=== PATIENT | male | born 1990 | race African-American/Black ===

== ENCOUNTER 2016-07-12 21:17 | Emergency (ER) | payer SELFPAY ==
[~2016-07-12] VITALS: Ht 180.3 cm; Wt 131.5 kg
[2016-07-12] MEDS ORDERED: TETRACAINE 0.5% OPHTH SOLUTION 4ML BOTTLE. OD ONE (22:00)
[2016-07-12] MEDS ORDERED: FLUORESCEIN 1MG EYE STRIP. OD ONE (22:00)
[2016-07-12] MEDS ORDERED: FLUORESCEIN 1MG EYE STRIP. ONE (22:23)
[2016-07-12] MEDS ORDERED: TETRACAINE 0.5% OPHTH SOLUTION 4ML BOTTLE. ONE (22:23)
[2016-07-12 22:41] VITALS: BP 153/100
[2016-07-12] MEDS ORDERED: IBUP800T PO (22:45)
[2016-07-12] MEDS ORDERED: ERYT1OIN6 LEFTEYE (22:45)
[2016-07-12] MEDS ORDERED: CYCL2DRO3 OP (22:45)
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
== END 2016-07-12 23:15 | disposition home or self-care (01) ==
LOC: ER 21:17
DX: S60.222A Contusion of left hand, initial encounter (principal); S60.221A Contusion of right hand, initial encounter; S05.02XA Injury of conjunctiva and corneal abrasion without foreign body, left eye, initial encounter; E11.9 Type 2 diabetes mellitus without complications; E78.00 Pure hypercholesterolemia, unspecified; I10 Essential (primary) hypertension; Y08.89XA Assault by other specified means, initial encounter; Y93.89 Activity, other specified; Y99.8 Other external cause status; Y92.89 Other specified places as the place of occurrence of the external cause
CPT/HCPCS: 73130; 99284

== ENCOUNTER 2016-09-22 18:36 | Emergency (ER) | payer BC, OTHER ==
[~2016-09-22] VITALS: Ht 180.3 cm; Wt 131.5 kg
[~2016-09-22 18:36] MED LIST: CYCL2DRO3 OP; ERYT1OIN6 LEFTEYE; IBUP800T19 PO
[2016-09-22] MEDS ORDERED: IV NORMAL SALINE 1,000ML 1,000 ML IV SCH (19:00)
[2016-09-22] MEDS ORDERED: 0.9 % SODIUM CHLORIDE 10 ML DISP.SYRIN. IV PRN (19:00)
--- NOTE | 2016-09-22 19:08 | PHYS DOC ---
Past History Past Medical History: Diabetes, High Cholesterol, Hypertension Past Surgical History: No Surgical History Alcohol Use: Occasionally Drug Use: None Adult General Chief Complaint Chief Complaint: [facility] HPI Patient is a 26-year-old male with a history of hypertension, diabetes, hyperlipidemia and question with history of sleep apnea who presents with increased urinary output dry mouth with a perception of a swollen tongue and increased sleepiness. Patient is sent to assess several weeks he's had increased thirst with increased urinary output of clear urine without abdominal pain, nausea, vomiting, diarrhea or other symptoms. He was in metformin at one point in time but because of his poor renal function that placement and Lantus. He takes 20 units of Lantus twice daily although he says he's been eating regularly he has not changed his diet he has been eating candy to help with his apnea and sleepiness in the car. He says that even at rest sometimes he gets so sleepy that he been on was passes out. Although this was specific neurologic deficit of numbness or tingling or change in vision or change in speech patterns patient sees that his sleepiness is actually increased in frequency. Patient did mention that possibly he has sleep apnea undiagnosed as his mother says he snores loudly and actually wakes himself up frequently in the course of the evening. Patient denies any fever, chills, headache or other trauma. His sugar today has been greater than 400. Review of Systems Review of Systems Constitutional: Denies fever or chills [] Eyes: Denies change in visual acuity, redness, or eye pain [] HENT: Denies nasal congestion or sore throat [] Respiratory: Denies cough or shortness of breath [] Cardiovascular: No additional information not addressed in HPI [] GI: Denies abdominal pain, nausea, vomiting, bloody stools or diarrhea [] : Denies dysuria or hematuria [] Musculoskeletal: Denies back pain or joint pain [] Integument: Denies rash or skin lesions [] Neurologic: Denies headache, patient describes generalized weakness and a pattern of almost narcoleptic-like behavior. Endocrine: Does describe a pattern of polyuria polydipsia Current Medications Current Medications Current Medications Medications (Trade) Dose Ordered Sig/Boy Start Time Stop Time Status Last Admin Dose Admin Sodium Chloride (Normal Saline Flush) 10 ml QSHIFT PRN 09/22/16 19:00 UNV Allergies Allergies Allergies Coded Allergies Type Severity Reaction Last Updated Verified No Known Drug Allergies 09/22/16 No Physical Exam Physical Exam Is noted to be hypertensive with a heart rate of 97 blood pressure 168/88 pulse ox of 97% on room air. Constitutional: Well developed, well nourished, no acute distress, non-toxic appearance. [] HENT: Normocephalic, atraumatic, bilateral external ears normal, dry mucous membranes, no oral exudates, nose normal. [] Eyes: PERRLA, EOMI, conjunctiva normal, no discharge. [] Neck: Normal range of motion, no tenderness, supple, no stridor. [] Cardiovascular:Heart rate regular rhythm, no murmur [] Lungs & Thorax: Bilateral breath sounds clear to auscultation [] Abdomen: Bowel sounds normal, soft, no tenderness, no masses, no pulsatile masses. [] Skin: Warm, dry, no erythema, no rash. [] Back: No tenderness, no CVA tenderness. [] Extremities: No tenderness, no cyanosis, no clubbing, ROM intact, no edema. [] Neurologic: Alert and oriented X 3, normal motor function, normal sensory function, no focal deficits noted. [] Psychologic: Affect normal, judgement normal, mood normal. [] Current Patient Data Vital Signs Vital Signs Date Time Temp Pulse Resp B/P (MAP) Pulse Ox O2 Delivery O2 Flow Rate FiO2 09/22/16 18:46 98.0 106 20 98 Room Air Lab Results Laboratory Tests Test 09/22/16 18:43 Glucose (Fingerstick) 441 mg/dL (70-99) H EKG EKG [] KG time 7:09 PM 09/22/2016 demonstrates normal sinus rhythm with a heart rate of 99 UT interval 128 QRS of 86 QTC of 400 patient has nonspecific T-wave inversion in the inferior leads and some nonspecific ST 7 changes in the anterior leads no clear STEMI. Radiology/Procedures Radiology/Procedures [] Patient is a PA lateral chest x-ray completed at 7:12 PM 09/22/2016 demonstrates no cardiomegaly lower lung volumes without hyperinflation or blunting of the costophrenic angles. Patient is no pleural effusion infiltrate no pneumothorax. Chest x-ray read by Dr. Fuller Course & Med Decision Making Course & Med Decision Making Pertinent Labs and Imaging studies reviewed. (See chart for details) is his presentation is concerning for possible competitions of diabetic ketoacidosis or hyperglycemia. The apnea and sleepiness described by the patient during the daylight hours may be associated with underlying no sleep-wake problems which may contribute to his attention issues, his hypertension and his sleepiness. This point I will get an acetone level, urinalysis, EKG, troponin, CMP CBC and an appropriate measure pH by ABG. We initially given some fluids see that his sugars improved. We'll ensure that he is not in DKA today. Patient tells me that their symptoms given during CC are improved. We reviewed labs and radiology reports with patient . He is ABG demonstrates a pH of 7.38 PCO2 42 PaO2 of 71 base excess of 0 bicarbonate 25. This ABG does not do note acidosis. Patient's blood glucose is 417. Patient's neck negative acetone, negative urinalysis for ketones, no anion gap at this time. Patient clearly is not in DKA. He is hyperglycemic but he has normal kidney function normal BUN/ creatinine is not dehydrated with normal electrolytes. Patient will be given fluids here dose insulin to drop his glucose tomorrow appropriate level. At this time I would advise that he follows up with his primary care doctor for better monitoring and management of his diabetes as well as referral to a neurologist for sleep study to rule out sleep apnea. Impression: Hyperglycemia. Fatigue secondary to possible sleep apnea by history and hypertension.] Disposition: PCP follow-up in 48 hours Dragon Disclaimer Dragon Disclaimer This chart was dictated in whole or in part using Voice Recognition software in a busy, high-work load, and often noisy Emergency Department environment. It may contain unintended and wholly unrecognized errors or omissions. Departure Departure: Impression: Primary Impression: Hyperglycemia Additional Impressions: Sleep apnea Hypertension Disposition: HOME, SELF-CARE Condition: IMPROVED Referrals: VIN CANTRELL MD (PCP) Patient Instructions: 2400 Calorie Diet for Diabetes Meal Planning, Hyperglycemia, Hypertension, Sleep Apnea Additional Instructions: Please return for any new or increasing symptoms. I would suggest that you follow-up with your primary care doctor for a referral for neurologist office so they can test to and get a sleep study organized. That may contribute to your fatigue your sleepiness and your hypertension. I would also advise he follow up with her primary care doctor in the next 48 hours to talk about your insulin dosing and your regimen. He may ask to benefit from a longer acting insulin like Levemir and a short acting insulin in addition to that to help control her sugars. These return for any question or concern she might have. Problem Qualifiers GISSEL FULLER MD Sep 22, 2016 19:08
[2016-09-22 19:18] LABS: BASO % 1 % (0-3); EOS # 0.1 x10^3/uL (0.0-0.7); EOS % 1 % (0-3); HEMATOCRIT 41.8 % (39.0-53.0); HEMOGLOBIN 13.8 g/dL (13.0-17.5); LYMPH # 2.4 x10^3/uL (1.0-4.8); LYMPH % 39 % (24-48); MEAN CORPUSCULAR HEMOGLOBIN 28 pg (25-35); MEAN CORPUSCULAR HGB CONC 33 g/dL (31-37); MEAN CORPUSCULAR VOLUME 83 fL (79-100); MONO # 0.6 x10^3/uL (0.0-1.1); MONO % 9 % (0-9); NEUT # 3.1 x10^3uL (1.8-7.7); NEUT % 50 % (31-73); PLATELET COUNT 192 x10^3/uL (140-400); RED BLOOD COUNT 5.03 x10^6/uL (4.30-5.70); RED CELL DISTRIBUTION WIDTH 12.6 % (11.5-14.5); WHITE BLOOD COUNT 6.2 x10^3/uL (4.0-11.0)
[2016-09-22 19:39] LABS: BGAS PH 7.39 (7.35-7.46)
[2016-09-22 19:41] LABS: ALBUMIN 3.7 g/dL (3.4-5.0); ALBUMIN/GLOBULIN RATIO 0.9 (1.0-1.7); CALCIUM 8.9 mg/dL (8.5-10.1); CREATININE 1.2 mg/dL (0.7-1.3); MAGNESIUM 1.8 mg/dL (1.8-2.4); POTASSIUM 4.2 mmol/L (3.5-5.1); TOTAL BILIRUBIN 0.5 mg/dL (0.2-1.0)
[2016-09-22 19:48] LABS: BACTERIA,URINE 0 /HPF (0-FEW); BILIRUBIN,URINE NEG (NEG); CLARITY,URINE CLEAR; COLOR,URINE STRAW; GLUCOSE,URINE 500 mg/dL (NEG); NITRITE,URINE NEG (NEG); RBC,URINE 0 /HPF (0-2); SQUAMOUS EPITHELIAL CELL,UR OCC /LPF; UROBILINOGEN,URINE 0.2 mg/dL (0.2 mg/dL); WBC,URINE OCC /HPF (0-4)
[2016-09-22] MEDS ORDERED: INSULIN REGULAR 100 UNIT/ML 10ML VIAL. IV ONE (20:15)
[2016-09-22 20:43] VITALS: BP 150/82
--- NOTE | 2016-09-23 00:35 | EKG ---
[address] [address] Test Date: 2016-09-22 Test Time: 19:09:20 Pat Name: SHELLEY CHAVARRIA Department: Room: Gender: M Communications Programmer: : [id number] Requested By: GISSEL MORALES Order Number: [id number] Reading MD: Measurements Intervals [place] Rate: 99 P: 54 AK: 128 QRS: -13 QRSD: 86 T: -28 QT: 308 QTc: 400 Interpretive Statements SINUS RHYTHM LEFTWARD AXIS QRS(T) CONTOUR ABNORMALITY CONSIDER ANTEROSEPTAL MYOCARDIAL DAMAGE T ABNORMALITY IN ANTEROLATERAL LEADS INFEROLATERAL LEADS RI6.01 Unconfirmed report No previous ECG available for comparison
--- NOTE | 2016-09-23 09:02 | RAD ---
EXAM: CHEST 2 VIEWS History: Generalized weakness, shortness of breath, syncope COMPARISON: None available. TECHNIQUE: PA and lateral chest radiographs FINDINGS: The cardiomediastinal silhouette is within normal limits. The lungs are clear bilaterally. The costophrenic sulci are clear and well demarcated bilaterally. IMPRESSION: No radiographic evidence of an acute cardiopulmonary abnormality.
== END 2016-09-22 20:47 | disposition home or self-care (01) ==
LOC: ER 18:36
DX: E11.65 Type 2 diabetes mellitus with hyperglycemia (principal); I10 Essential (primary) hypertension; G47.30 Sleep apnea, unspecified; E78.00 Pure hypercholesterolemia, unspecified
CPT/HCPCS: 36415; 36600; 71020; 80053; 81001; 82010; 82553; 82803; 82947; 83690; 83735; 83880; 84443; 84484; 85027; 93005; 96361; 96374; 99285; J1815; J7030

== ENCOUNTER 2017-04-05 01:19 | Emergency (ER) | payer BC ==
[~2017-04-05] VITALS: Ht 180.3 cm; Wt 125.2 kg
--- NOTE | 2017-04-05 01:37 | ED.ADGEN ---
Past History Past Medical History: Diabetes, High Cholesterol, Hypertension Past Surgical History: No Surgical History Alcohol Use: Occasionally Drug Use: None Adult General Chief Complaint Chief Complaint " I just got off work.... and felt a little dizzy.... I have not taken my diabetic or hypertension meds... " HPI HPI Patient is a 27 year old male who presents with above hx and complaints. Patient is on metformin for his diabetes, the patient does not remember his hypertensive meds. Patient does follow Dr. Pollock. A shunt is around sick patient' s where he works at [employer]. Patient did eat at [employer]. Patient denies any trauma. Patient denies any specific ill contacts. Patient denies any recent travel. Patient denies any illicit drug use. Patient has not taken a flu vaccination Review of Systems Review of Systems Constitutional: Denies fever or chills [] Eyes: Denies change in visual acuity, redness, or eye pain [] HENT: Denies nasal congestion or sore throat [] Respiratory: Denies cough or shortness of breath [] Cardiovascular: No additional information not addressed in HPI [] GI: Denies abdominal pain, nausea, vomiting, bloody stools or diarrhea [] : Denies dysuria or hematuria [] Musculoskeletal: Denies back pain or joint pain [] Integument: Denies rash or skin lesions [] Neurologic: Denies headache, focal weakness or sensory changes [patient] complains of mild dizziness Endocrine: Denies polyuria or polydipsia [] All other systems were reviewed and found to be within normal limits, except as documented in this note. Family History Family History Diabetes Current Medications Current Medications Current Medications Medications (Trade) Dose Ordered Sig/Boy Start Time Stop Time Status Last Admin Dose Admin Diphenhydramine HCl (Benadryl) 50 mg 1X ONCE 04/05/17 02:30 04/05/17 02:31 DC 04/05/17 02:25 50 MG Meclizine HCl (Antivert) 25 mg PRN Q6HRS PRN 04/05/17 02:15 04/05/17 02:32 DC 04/05/17 02:25 25 MG See nursing for home meds Allergies Allergies Allergies Coded Allergies Type Severity Reaction Last Updated Verified No Known Drug Allergies 09/22/16 No Physical Exam Physical Exam Constitutional: Well developed, well nourished, no acute distress, non-toxic appearance. [] HENT: Normocephalic, atraumatic, bilateral external ears normal, oropharynx moist, no oral exudates, nose mild turbinate injection and rhinorrhea Eyes: PERRLA, EOMI, conjunctiva normal, no discharge. [] Neck: Normal range of motion, no tenderness, supple, no stridor. [] Cardiovascular:Heart rate regular rhythm, no murmur [] Lungs & Thorax: Bilateral breath sounds clear to auscultation [] Abdomen: Bowel sounds normal, soft, no tenderness, no masses, no pulsatile masses. [] Obese Skin: Warm, dry, no erythema, no rash. [] Back: No tenderness, no CVA tenderness. [] Extremities: No tenderness, no cyanosis, no clubbing, ROM intact, no edema. [] Neurologic: Alert and oriented X 3, normal motor function, normal sensory function, no focal deficits noted. []DTRs +2 patella and brachial. Patient attempt without problems. Psychologic: Affect normal, judgement normal, mood normal. [] Current Patient Data Vital Signs Vital Signs Date Time Temp Pulse Resp B/P (MAP) Pulse Ox O2 Delivery O2 Flow Rate FiO2 04/05/17 02:30 85 16 139/76 (97) 96 Room Air Lab Results Laboratory Tests Test 04/05/17 01:44 04/05/17 01:49 Glucose (Fingerstick) 286 mg/dL (70-99) H Urine Collection Type Unknown Urine Color Yellow Urine Clarity Clear Urine pH 6.0 Urine Specific [place] 1.015 Urine Protein 100 mg/dl (NEG-TRACE) Urine Glucose (UA) 500 mg/dL (NEG) Urine Ketones (Stick) Neg mg/dL (NEG) Urine Blood Trace (NEG) Urine Nitrite Neg (NEG) Urine Bilirubin Neg (NEG) Urine Urobilinogen Dipstick 0.2 mg/dL (0.2 mg/dL) Urine Leukocyte Esterase Neg (NEG) Urine RBC 0 /HPF (0-2) Urine WBC Rare /HPF (0-4) Urine Squamous Epithelial Cells Occ /LPF Urine Bacteria 0 /HPF (0-FEW) Urine Opiates Screen Neg (NEG) Urine Methadone Screen Neg (NEG) Urine Barbiturates Neg (NEG) Urine Phencyclidine Screen Neg (NEG) Urine Amphetamine/Methamphetamine Neg (NEG) Urine Benzodiazepines Screen Neg (NEG) Urine Cocaine Screen Neg (NEG) Urine Cannabinoids Screen Neg (NEG) Urine Ethyl Alcohol Neg (NEG) EKG EKG [] Radiology/Procedures Radiology/Procedures [] Course & Med Decision Making Course & Med Decision Making Pertinent Labs and Imaging studies reviewed. (See chart for details). Push fluids. Push fruit juices. Follow-up primary care. Patient Continued meds and diabetic meds as directed. [] Final Impression Final Impression 1. Dizzy 2. DM 3. Hypertension[] Problems: Dragon Disclaimer Dragon Disclaimer This electronic medical record was generated, in whole or in part, using a voice recognition dictation system. GINA MUNGUIA MD Apr 05, 2017 01:37
[2017-04-05] MEDS ORDERED: MECLIZINE 12.5 MG TABLET. PO PRN (02:15)
[2017-04-05 02:17] LABS: BARBITURATES NEG (NEG); BENZODIAZEPINES NEG (NEG); CANNABINOIDS NEG (NEG); COCAINE NEG (NEG); METHADONE NEG (NEG); OPIATES NEG (NEG); PHENCYCLIDINE NEG (NEG)
[2017-04-05 02:20] LABS: AMPHETAMINE/METHAMPHETAMINE NEG (NEG)
[2017-04-05 02:22] LABS: BACTERIA,URINE 0 /HPF (0-FEW); BILIRUBIN,URINE NEG (NEG); CLARITY,URINE CLEAR; GLUCOSE,URINE 500 mg/dL (NEG); NITRITE,URINE NEG (NEG); RBC,URINE 0 /HPF (0-2); SQUAMOUS EPITHELIAL CELL,UR OCC /LPF; UROBILINOGEN,URINE 0.2 mg/dL (0.2 mg/dL); WBC,URINE RARE /HPF (0-4)
[2017-04-05 02:23] LABS: COLOR,URINE YELLOW
[2017-04-05 02:30] VITALS: BP 139/76
[2017-04-05] MEDS ORDERED: diphenhydrAMINE HCL 25 MG CAPSULE PO ONE (02:30)
== END 2017-04-05 02:30 | disposition home or self-care (01) ==
LOC: ER 01:19
DX: R42 Dizziness and giddiness (principal); E11.9 Type 2 diabetes mellitus without complications; E78.00 Pure hypercholesterolemia, unspecified; I10 Essential (primary) hypertension
CPT/HCPCS: 36415; 80307; 81001; 82947; 99284; J8597; Q0163; G0479

== ENCOUNTER 2017-10-19 09:38 | Emergency (ER) | payer BC ==
[~2017-10-19] VITALS: Ht 180.3 cm; Wt 131.0 kg
[2017-10-19 10:16] LABS: BILIRUBIN,URINE NEG (NEG); CLARITY,URINE CLEAR; COLOR,URINE YELLOW; GLUCOSE,URINE >=1000 mg/dL (NEG)
[2017-10-19 10:17] LABS: BACTERIA,URINE 0 /HPF (0-FEW); NITRITE,URINE NEG (NEG); RBC,URINE 0 /HPF (0-2); SQUAMOUS EPITHELIAL CELL,UR OCC /LPF; UROBILINOGEN,URINE 0.2 mg/dL (0.2 mg/dL); WBC,URINE 0 /HPF (0-4)
--- NOTE | 2017-10-19 10:17 | PHYS DOC ---
Past History Past Medical History: Diabetes, High Cholesterol, Hypertension Past Surgical History: No Surgical History Alcohol Use: Occasionally Drug Use: None Adult General Chief Complaint Chief Complaint: PAIN ON URINATION [facility] 27-year-old male patient with history of diabetes mellitus on insulin complaining of problem with his urination for almost 2 months. Patient states he had urinary frequency and dysuria and stress urine incontinence that gradually getting worse. Patient states he was seen by his primary care physician 50s after stopping his symptom and had negative STD evaluation. Patient complaining of subjective fever and morning nausea. Patient also complaining of several other chronic problem including episodes of apnea while sleeping that supported by his mother and a bump in his abdominal wall for several months and instructed to follow-up with his chronic problem with his primary care physician. Review of Systems Review of Systems Constitutional: Ports subjective fever and chills[] Eyes: Denies change in visual acuity, redness, or eye pain [] HENT: Denies nasal congestion or sore throat [] Respiratory: Denies cough or shortness of breath [] Cardiovascular: No additional information not addressed in HPI [] GI: Denies abdominal pain, nausea, vomiting, bloody stools or diarrhea [] : Reports dysuria and urinary frequency, denies hematuria Musculoskeletal: Denies back pain or joint pain [] Integument: Denies rash or skin lesions [] Neurologic: Denies headache, focal weakness or sensory changes [] Endocrine: Denies polyuria or polydipsia [] All other systems were reviewed and found to be within normal limits, except as documented in this note. Allergies Allergies Allergies Coded Allergies Type Severity Reaction Last Updated Verified No Known Drug Allergies 09/22/16 No Physical Exam Physical Exam Constitutional: Well developed, well nourished, no acute distress, non-toxic appearance, morbidly obese. [] HENT: Normocephalic, atraumatic, oropharynx moist, no oral exudates, nose normal. [] Eyes: PERRLA, EOMI, conjunctiva normal, no discharge. [] Neck: Normal range of motion, no tenderness, supple, no stridor. [] Cardiovascular:Heart rate regular rhythm, no murmur [] Lungs & Thorax: Bilateral breath sounds clear to auscultation [] Abdomen: Bowel sounds normal, soft, no tenderness, no masses, no pulsatile masses. [] Skin: Warm, dry, no erythema, no rash. [] Back: No tenderness, no CVA tenderness. [] Extremities: No tenderness, no cyanosis, no clubbing, ROM intact, no edema. [] Neurologic: Alert and oriented X 3, normal motor function, normal sensory function, no focal deficits noted. [] Psychologic: Affect normal, judgement normal, mood normal. [] Current Patient Data Vital Signs Vital Signs Date Time Temp Pulse Resp B/P (MAP) Pulse Ox O2 Delivery O2 Flow Rate FiO2 10/19/17 09:51 98.4 91 20 95 Room Air Lab Results Laboratory Tests Test 10/19/17 09:49 Glucose (Fingerstick) 310 mg/dL (70-99) H EKG EKG [] Radiology/Procedures Radiology/Procedures [] Course & Med Decision Making Course & Med Decision Making Pertinent Labs and Imaging studies reviewed. (See chart for details) Evaluation of patient in ER showed 27-year-old male patient with complaining of several chronic problems including urinary frequency and dysuria for the last 2 months. Patient had blood sugar of 310 with accu check and 288 with the lab. Patient had unremarkable physical exam except for morbid obesity. Patient instructed to follow with diabetic diet. Patient had blood pressure of 159/100 at arrival to ER and stated he had elevation of blood pressure previously but doesn't take any medication. Plan to give prescription for lisinopril. [] Dragon Disclaimer Dragon Disclaimer This electronic medical record was generated, in whole or in part, using a voice recognition dictation system. Departure Departure: Impression: Primary Impression: Uncontrolled diabetes mellitus Additional Impressions: Hyperglycemia Urinary frequency Morbid obesity Uncontrolled hypertension Disposition: HOME, SELF-CARE (at 1207) Condition: STABLE Referrals: PCP,UNKNOWN (PCP) Patient Instructions: Diet - 2000 Calorie Diabetic, Dysuria, Hyperglycemia Additional Instructions: Drink plenty of liquids Follow-up with your primary care physician in 3-5 days Return to ER if not getting better Scripts Phenazopyridine Hcl (PYRIDIUM) 100 Mg Tablet 100 MG PO BID, #10 TAB Prov: JEREMIAS WISDOM MD 10/19/17 Lisinopril (LISINOPRIL) 10 Mg Tablet 10 MG PO DAILY for FOR HYPERTENSION, #30 TAB 0 Refills Prov: JEREMIAS WISDOM MD 10/19/17 Problem Qualifiers JEREMIAS WISDOM MD Oct 19, 2017 10:17
[2017-10-19] MEDS ORDERED: IV NORMAL SALINE 1,000ML 1,000 ML IV ONE (10:30)
[2017-10-19 10:49] LABS: BARBITURATES NEG (NEG); BENZODIAZEPINES NEG (NEG); CANNABINOIDS NEG (NEG); COCAINE NEG (NEG); METHADONE NEG (NEG); OPIATES NEG (NEG); PHENCYCLIDINE NEG (NEG)
[2017-10-19 10:50] LABS: AMPHETAMINE/METHAMPHETAMINE NEG (NEG)
[2017-10-19 11:34] LABS: BASO % 1 % (0-3); EOS # 0.1 x10^3/uL (0.0-0.7); EOS % 1 % (0-3); HEMATOCRIT 44.8 % (39.0-53.0); HEMOGLOBIN 15.2 g/dL (13.0-17.5); LYMPH # 2.7 x10^3/uL (1.0-4.8); LYMPH % 41 % (24-48); MEAN CORPUSCULAR HEMOGLOBIN 28 pg (25-35); MEAN CORPUSCULAR HGB CONC 34 g/dL (31-37); MEAN CORPUSCULAR VOLUME 81 fL (79-100); MONO # 0.6 x10^3/uL (0.0-1.1); MONO % 9 % (0-9); NEUT # 3.1 x10^3uL (1.8-7.7); NEUT % 48 % (31-73); PLATELET COUNT 258 x10^3/uL (140-400); RED BLOOD COUNT 5.53 x10^6/uL (4.30-5.70); RED CELL DISTRIBUTION WIDTH 13.1 % (11.5-14.5); WHITE BLOOD COUNT 6.5 x10^3/uL (4.0-11.0)
[2017-10-19 11:56] LABS: ALBUMIN 3.8 g/dL (3.4-5.0); ALBUMIN/GLOBULIN RATIO 0.8 (1.0-1.7); CREATININE 0.9 mg/dL (0.7-1.3); GFR 124.4; POTASSIUM 4.1 mmol/L (3.5-5.1); TOTAL BILIRUBIN 0.6 mg/dL (0.2-1.0); TOTAL PROTEIN 8.4 g/dL (6.4-8.2)
[2017-10-19] MEDS ORDERED: PHEN100T82 PO (12:14)
[2017-10-19] MEDS ORDERED: LISI10TA2 PO (12:14)
[2017-10-19 12:30] VITALS: BP 162/84
== END 2017-10-19 12:30 | disposition home or self-care (01) ==
LOC: ER 09:38
DX: E11.65 Type 2 diabetes mellitus with hyperglycemia (principal); R35.0 Frequency of micturition; I10 Essential (primary) hypertension; E78.00 Pure hypercholesterolemia, unspecified; E66.01 Morbid (severe) obesity due to excess calories; Z68.41 Body mass index [BMI] 40.0-44.9, adult
CPT/HCPCS: 36415; 80053; 80307; 81001; 82947; 83690; 85025; 96360; 99284-25; G0479; J7030

== ENCOUNTER 2017-10-30 18:01 | Emergency (ER) | payer BC ==
[~2017-10-30] VITALS: Ht 180.3 cm; Wt 127.0 kg
[~2017-10-30 18:01] MED LIST changes: +LISI10TA2 PO; +PHEN100T82 PO
--- NOTE | 2017-10-30 18:09 | ED.ADGEN ---
Past History Past Medical History: Diabetes, High Cholesterol, Hypertension Past Surgical History: No Surgical History Alcohol Use: Occasionally Drug Use: None Adult General Chief Complaint Chief Complaint " .. Yesterday.. at work about 5.. (1700).. I twisted my foot and ankle.. it still sore and swollen.. " HPI HPI Patient is a 27 year old male who presents with above hx and complaints of twisting and inversion injury to Rt. foot and ankle. No upper leg tenderness. Distal neurovascular intact or equal to Lt. ankle and foot. Pt. does have hx of DM. Pt. does have some edema to Rt. foot and ankle. Review of Systems Review of Systems Constitutional: Denies fever or chills [] Eyes: Denies change in visual acuity, redness, or eye pain [] HENT: Denies nasal congestion or sore throat [] Respiratory: Denies cough or shortness of breath [] Cardiovascular: No additional information not addressed in HPI [] GI: Denies abdominal pain, nausea, vomiting, bloody stools or diarrhea [] : Denies dysuria or hematuria [] Musculoskeletal: Rt. ankle and foot edema and pain Integument: Denies rash or skin lesions [] Neurologic: Denies headache, focal weakness or sensory changes [] Endocrine: Denies polyuria or polydipsia [] All other systems were reviewed and found to be within normal limits, except as documented in this note. Family History Family History DM Current Medications Current Medications Current Medications Medications (Trade) Dose Ordered Sig/Boy Start Time Stop Time Status Last Admin Dose Admin Hydrocodone Bitartrate/ Ibuprofen (Vicoprofen 7.5-200) 2 tab 1X ONCE 10/30/17 18:30 10/30/17 18:31 DC 10/30/17 18:33 2 TAB See Nursing for home meds. Allergies Allergies Allergies Coded Allergies Type Severity Reaction Last Updated Verified No Known Drug Allergies 10/30/17 No Physical Exam Physical Exam Constitutional: Well developed, well nourished, no acute distress, non-toxic appearance. [] HENT: Normocephalic, atraumatic, bilateral external ears normal, oropharynx moist, no oral exudates, nose normal. [] Eyes: PERRLA, EOMI, conjunctiva normal, no discharge. [] Neck: Normal range of motion, no tenderness, supple, no stridor. [] Cardiovascular:Heart rate regular rhythm, no murmur [] Lungs & Thorax: Bilateral breath sounds clear to auscultation [] Abdomen: Bowel sounds normal, soft, no tenderness, no masses, no pulsatile masses. [] Obese. Skin: Warm, dry, no erythema, no rash. [] Back: No tenderness, no CVA tenderness. [] Extremities: No tenderness, no cyanosis, no clubbing, ROM intact, no edema. [] Except findings in Rt. foot and ankle. Neurologic: Alert and oriented X 3, normal motor function, normal sensory function, no focal deficits noted. [] Psychologic: Affect anxious, judgement normal, mood normal. [] Current Patient Data Vital Signs Vital Signs Date Time Temp Pulse Resp B/P (MAP) Pulse Ox O2 Delivery O2 Flow Rate FiO2 10/30/17 18:55 79 18 169/107 (127) 96 Room Air 10/30/17 18:01 98.2 EKG EKG [] Radiology/Procedures Radiology/Procedures My interpretation of Rt. foot and ankle shows edema. Some DJD. No displaced fx . [] Course & Med Decision Making Course & Med Decision Making Pertinent Labs and Imaging studies reviewed. (See chart for details). Follow up work comp. Ice, elevation, rest and take Ibuprofen for pain. Zackery wrap. Must follow up. Marked pain take vicoprofen. [] Final Impression Final Impression 1. Rt. ankle and foot- sprain / strain[] Dragon Disclaimer Dragon Disclaimer This electronic medical record was generated, in whole or in part, using a voice recognition dictation system. GINA MUNGUIA MD Oct 30, 2017 18:09
[2017-10-30] MEDS ORDERED: HYDROcodon/IBUPROFEN 7.5/200MG 1 TAB TABLET PO ONE (18:30)
[2017-10-30] MEDS ORDERED: HYDR-79 PO (18:32)
[2017-10-30 18:55] VITALS: BP 169/107
--- NOTE | 2017-10-31 07:59 | RAD ---
EXAM: 1. 3 views right ankle 2. 3 views right foot DATE: 10/30/2017 6:02 PM INDICATION: TWISTED RIGHT ANKLE/FOOT YESTERDAY, PAIN ALL OVER COMPARISON: No Prior FINDINGS: No evidence of acute fracture or dislocation. Soft tissue swelling is seen overlying the medial aspect of the midfoot. Ankle mortise is congruent. Talar dome is intact. There is no offset at the tarsometatarsal joint on these nonweightbearing views. Joint spaces are preserved without significant degenerative/proliferative change. Type II navicular incidentally seen. IMPRESSION: 1. No evidence of acute fracture or dislocation. 2. Soft tissue swelling overlying the medial midfoot. Electronically signed by: Nacho Murray MD (10/31/2017 7:55 AM) [facility]
== END 2017-10-30 18:55 | disposition home or self-care (01) ==
LOC: ER 18:01
DX: S93.401A Sprain of unspecified ligament of right ankle, initial encounter (principal); S93.601A Unspecified sprain of right foot, initial encounter; E11.9 Type 2 diabetes mellitus without complications; I10 Essential (primary) hypertension; E78.00 Pure hypercholesterolemia, unspecified; X50.1XXA Overexertion from prolonged static or awkward postures, initial encounter; Y93.89 Activity, other specified; Y92.89 Other specified places as the place of occurrence of the external cause; Y99.8 Other external cause status
CPT/HCPCS: 73610; 73630; 99284

== ENCOUNTER 2017-12-31 16:29 | Emergency (ER) | payer BC ==
[~2017-12-31] VITALS: Ht 180.3 cm; Wt 127.0 kg
[~2017-12-31 16:29] MED LIST changes: +HYDR-79 PO
[2017-12-31] MEDS ORDERED: IV NORMAL SALINE 1,000ML 1,000 ML IV ONE (17:00)
--- NOTE | 2017-12-31 17:08 | PHYS DOC ---
Past History Past Medical History: Diabetes, Pneumonia Past Surgical History: No Surgical History Smoking: Non-smoker Alcohol Use: None Drug Use: None Adult General Chief Complaint Chief Complaint: DIZZY/LIGHT HEADED HPI HPI Patient is a 27 year old male who presents with complaining of dizziness for the last 3 days as a constant problem that getting worse with standing up and movement of his head. 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 Patient complaining of chronic headache for several months. No change. Patient complaining of intermittent episodes of plugging ears for the last 3 days without tinnitus. Patient denies nausea, vomiting, fever and chills, diarrhea and constipation, focal neuro deficit, chest pain, shortness of breath. Patient complaining of nasal congestion and states he was treated with Zithromax for sinus infection without improvement of his dizziness. Patient states his blood sugar usually runs about 80s but yesterday was more than 200. Review of Systems Review of Systems Constitutional: Denies fever or chills [] Eyes: Denies change in visual acuity, redness, or eye pain [] HENT: Denies nasal congestion or sore throat [] Respiratory: Denies cough or shortness of breath [] Cardiovascular: No additional information not addressed in HPI [] GI: Denies abdominal pain, nausea, vomiting, bloody stools or diarrhea [] : Denies dysuria or hematuria [] Musculoskeletal: Denies back pain or joint pain [] Integument: Denies rash or skin lesions [] Neurologic: Reports dizziness and headache, denies focal weakness or sensory changes [] Endocrine: Denies polyuria or polydipsia [] All other systems were reviewed and found to be within normal limits, except as documented in this note. Current Medications Current Medications Current Medications Medications (Trade) Dose Ordered Sig/Boy Start Time Stop Time Status Last Admin Dose Admin Sodium Chloride 1,000 ml @ 1,000 mls/hr 1X ONCE 12/31/17 17:00 12/31/17 17:59 Allergies Allergies Allergies Coded Allergies Type Severity Reaction Last Updated Verified No Known Drug Allergies 10/30/17 No Physical Exam Physical Exam Constitutional: Well developed, well nourished, no acute distress, non-toxic appearance, obese. [] HENT: Normocephalic, atraumatic, bilateral external ears normal, oropharynx moist, no oral exudates, nose normal. [] Eyes: PERRLA, EOMI, conjunctiva normal, no discharge. [] Neck: Normal range of motion, no tenderness, supple, no stridor. [] Cardiovascular:Heart rate regular rhythm, no murmur [] Lungs & Thorax: Bilateral breath sounds clear to auscultation [] Abdomen: Bowel sounds normal, soft, no tenderness, no masses, no pulsatile masses. [] Skin: Warm, dry, no erythema, no rash. [] Back: No tenderness, no CVA tenderness. [] Extremities: No tenderness, no cyanosis, no clubbing, ROM intact, no edema. [] Neurologic: Alert and oriented X 3, normal motor function, normal sensory function, no focal deficits noted. [] Psychologic: Affect normal, judgement normal, mood normal. [] Current Patient Data Vital Signs Vital Signs Date Time Temp Pulse Resp B/P (MAP) Pulse Ox O2 Delivery O2 Flow Rate FiO2 12/31/17 16:43 98.4 101 20 98 Lab Results Laboratory Tests Test 12/31/17 16:56 Glucose (Fingerstick) 331 mg/dL (70-99) H EKG EKG EKG interpreted by me. EKG at 1651 showed sinus rhythm at rate of 91, T abnormality in anteroseptal leads, no acute ST and T-wave abnormalities. Radiology/Procedures Radiology/Procedures [address] [address] IMAGING REPORT Signed PATIENT: SHELLEY CHAVARRIA ACCOUNT: [id number] : 1990 LOCATION: ER AGE: 27 SEX: M EXAM STATUS: REG ER ORD. PHYSICIAN: JEREMIAS WISDOM MD REASON: dizziness and headache PROCEDURE: CT HEAD WO CONTRAST CT head without intravenous contrast History: Headache and dizziness for 4 days. Comparison: None. Technique: Axial images are obtained of the head from the skull base through the vertex without IV contrast. Exposure: One or more of the following individualized dose reduction techniques were utilized for this examination: 1. Automated exposure control 2. Adjustment of the mA and/or kV according to patient size 3. Use of iterative reconstruction technique Findings: The ventricles are appropriate in size, shape, and location for the patient's age. No obvious intracranial mass, mass-effect, midline shift, hemorrhage or obvious acute infarction is identified. Basilar cisterns are patent. Bone windows demonstrate no acute calvarial abnormality. Mild mucosal thickening involves ethmoid air cells. Mild left maxillary sinus disease is incompletely visualized. Nonosseous fusion of the posterior arch of C1 is seen. Impression: 1. No acute intracranial process. Electronically signed by: Shadi Hutson MD (12/31/2017 5:55 PM) [facility] DICTATED AND SIGNED BY: SHADI HUTSON MD DATE: 12/31/17 7904 CC: TIM VORA MD; JEREMIAS WISDOM MD ~ Course & Med Decision Making Course & Med Decision Making Pertinent Labs and Imaging studies reviewed. (See chart for details) Evaluation of patient in ER showed 27-year-old male patient with complaining of dizziness. Patient had blood sugar of more than 300 and treated with IV fluid improvement of his dizziness and condition. Labs otherwise was unremarkable. Patient had negative orthostatic vital sign and CT of head. Patient instructed to follow with diabetic diet and continue home diabetic medication. Dragon Disclaimer Dragon Disclaimer This electronic medical record was generated, in whole or in part, using a voice recognition dictation system. Departure Departure: Impression: Primary Impression: Hyperglycemia Additional Impression: Dizziness Disposition: 01 HOME, SELF-CARE (at 1830) Condition: IMPROVED Referrals: TIM VORA MD (PCP) Patient Instructions: 1800 Calorie Diet for Diabetes Meal Planning, Dizziness, Hyperglycemia Additional Instructions: Drink plenty of liquids Follow-up with your primary care physician in 3-5 days Return to ER if not getting better Problem Qualifiers JEREMIAS WISDOM MD Dec 31, 2017 17:08
[2017-12-31 17:26] LABS: BASO % 0 % (0-3); EOS # 0.1 x10^3/uL (0.0-0.7); EOS % 2 % (0-3); HEMATOCRIT 41.8 % (39.0-53.0); LYMPH % 40 % (24-48); MEAN CORPUSCULAR HEMOGLOBIN 27 pg (25-35); MEAN CORPUSCULAR HGB CONC 34 g/dL (31-37); MEAN CORPUSCULAR VOLUME 81 fL (79-100); MONO # 0.6 x10^3/uL (0.0-1.1); MONO % 12 % (0-9); NEUT # 2.2 x10^3uL (1.8-7.7); NEUT % 46 % (31-73); PLATELET COUNT 254 x10^3/uL (140-400); RED BLOOD COUNT 5.15 x10^6/uL (4.30-5.70); RED CELL DISTRIBUTION WIDTH 13.1 % (11.5-14.5); WHITE BLOOD COUNT 4.9 x10^3/uL (4.0-11.0)
[2017-12-31 17:40] LABS: ALBUMIN 3.6 g/dL (3.4-5.0); GFR 110.2; MAGNESIUM 1.7 mg/dL (1.8-2.4); POTASSIUM 4.1 mmol/L (3.5-5.1); TOTAL BILIRUBIN 0.5 mg/dL (0.2-1.0); TOTAL PROTEIN 7.2 g/dL (6.4-8.2)
[2017-12-31 17:51] LABS: BARBITURATES NEG (NEG); BENZODIAZEPINES NEG (NEG); CANNABINOIDS NEG (NEG); COCAINE NEG (NEG); METHADONE NEG (NEG); OPIATES NEG (NEG); PHENCYCLIDINE NEG (NEG)
--- NOTE | 2017-12-31 17:58 | RAD ---
CT head without intravenous contrast History: Headache and dizziness for 4 days. Comparison: None. Technique: Axial images are obtained of the head from the skull base through the vertex without IV contrast. Exposure: One or more of the following individualized dose reduction techniques were utilized for this examination: 1. Automated exposure control 2. Adjustment of the mA and/or kV according to patient size 3. Use of iterative reconstruction technique Findings: The ventricles are appropriate in size, shape, and location for the patient's age. No obvious intracranial mass, mass-effect, midline shift, hemorrhage or obvious acute infarction is identified. Basilar cisterns are patent. Bone windows demonstrate no acute calvarial abnormality. Mild mucosal thickening involves ethmoid air cells. Mild left maxillary sinus disease is incompletely visualized. Nonosseous fusion of the posterior arch of C1 is seen. Impression: 1. No acute intracranial process. Electronically signed by: Shadi Gandhi MD (12/31/2017 5:55 PM) [facility]
[2017-12-31 17:59] LABS: AMPHETAMINE/METHAMPHETAMINE NEG (NEG)
[2017-12-31 18:30] VITALS: BP 174/62
[2017-12-31 18:31] LABS: BILIRUBIN,URINE NEG (NEG); CLARITY,URINE CLEAR; COLOR,URINE YELLOW; GLUCOSE,URINE >=1000 mg/dL (NEG)
[2017-12-31 18:32] LABS: BACTERIA,URINE FEW /HPF (0-FEW); NITRITE,URINE NEG (NEG); RBC,URINE OCC /HPF (0-2); UROBILINOGEN,URINE 0.2 mg/dL (0.2 mg/dL); WBC,URINE OCC /HPF (0-4)
--- NOTE | 2018-01-01 07:13 | EKG ---
[address] [address] Test Date: 2017-12-31 Test Time: 16:51:33 Pat Name: SHELLEY CHAVARRIA Department: Room: Gender: Blind Aide: : 1990 Requested By: JEREMIAS WISDOM Order Number: [id number] Reading MD: Scotty Parson MD Measurements Intervals [place] Rate: P: ID: QRS: QRSD: T: QT: QTc: Interpretive Statements SR NON-SPECIFIC ST/T CHANGES Electronically Signed On 01-02-2018 9:54:04 CDT by Scotty Parson MD
== END 2017-12-31 18:44 | disposition home or self-care (01) ==
LOC: ER 16:29
DX: E11.65 Type 2 diabetes mellitus with hyperglycemia (principal); R42 Dizziness and giddiness; R51 Headache
CPT/HCPCS: 36415; 70450; 80053; 80307; 81001; 82947; 83735; 84484; 85025; 93005; 96360; 99285-25; G0479; J7030

== ENCOUNTER 2018-03-29 23:57 | Inpatient (IN) | payer BC ==
[~2018-03-29] VITALS: Ht 180.3 cm; Wt 131.6 kg
[~2018-03-29 23:57] MED LIST changes: +HYDR-1179 PO; -HYDR-79 PO
--- NOTE | 2018-03-29 23:58 | ED.ADGEN ---
Past History Past Medical History: Diabetes, Pneumonia Past Surgical History: No Surgical History Smoking: Non-smoker Alcohol Use: None Drug Use: None Adult General Chief Complaint Chief Complaint ".. I ve been off my diabetic meds for about six weeks.. My new insurance will not cover them and they are too expensive.. " HPI HPI Patient is a 28 year old male who presents with above hx and complaints of hyperglycemia. Patient has had financial noncompliance because of the cost of diabetic meds. No recent travel. No specific ill contacts. No history immunosuppression. Patient normally follows Dr. Kaba's office Review of Systems Review of Systems Constitutional: Denies fever or chills [] Eyes: Denies change in visual acuity, redness, or eye pain [] HENT: Denies nasal congestion or sore throat [] Respiratory: Denies cough or shortness of breath [] Cardiovascular: No additional information not addressed in HPI [] GI: Denies abdominal pain, nausea, vomiting, bloody stools or diarrhea [] : Denies dysuria or hematuria [] Musculoskeletal: Denies back pain or joint pain [] Integument: Denies rash or skin lesions [] Neurologic: Denies headache, focal weakness or sensory changes [] Endocrine: Complaints of of polyuria or polydipsia [] All other systems were reviewed and found to be within normal limits, except as documented in this note. Family History Family History Noncontributory Current Medications Current Medications Current Medications Medications (Trade) Dose Ordered Sig/Boy Start Time Stop Time Status Last Admin Dose Admin Insulin Human Regular 150 unit/ Sodium Chloride 151.5 ml @ 0 mls/hr 1X ONCE 03/30/18 00:30 03/30/18 00:41 DC 03/30/18 00:59 7 MLS/HR Lactated Ringer's 1,000 ml @ 1,000 mls/hr 1X ONCE 03/30/18 01:15 03/30/18 02:14 DC Sodium Chloride 150 ml @ As Directed STK-MED ONCE 03/30/18 00:51 03/30/18 00:53 DC Allergies Allergies Allergies Coded Allergies Type Severity Reaction Last Updated Verified No Known Drug Allergies 10/30/17 No Physical Exam Physical Exam Constitutional: Well developed, well nourished, mild distress, non-toxic appearance. [] HENT: Normocephalic, atraumatic, bilateral external ears normal, oropharynx dry , no oral exudates, nose normal. [] Eyes: PERRLA, EOMI, conjunctiva normal, no discharge. [] Neck: Normal range of motion, no tenderness, supple, no stridor. [] Cardiovascular:Heart rate regular rhythm, no murmur [] Lungs & Thorax: Bilateral breath sounds clear to auscultation [] Abdomen: Bowel sounds normal, soft, no tenderness, no masses, no pulsatile masses. [] Skin: Warm, dry, no erythema, no rash. [] Back: No tenderness, no CVA tenderness. [] Extremities: No tenderness, no cyanosis, no clubbing, ROM intact, no edema. [] Neurologic: Alert and oriented X 3, normal motor function, normal sensory function, no focal deficits noted. [] Psychologic: Affect anxious, judgement normal, mood normal. [] Current Patient Data Vital Signs Vital Signs Date Time Temp Pulse Resp B/P (MAP) Pulse Ox O2 Delivery O2 Flow Rate FiO2 03/30/18 01:07 95 19 173/93 (119) 97 Room Air 03/30/18 00:26 97.8 Lab Results Laboratory Tests Test 03/30/18 00:10 03/30/18 00:15 03/30/18 00:20 Glucose (Fingerstick) 568 mg/dL (70-99) *H Urine Collection Type Unknown Urine Color Yellow Urine Clarity Clear Urine pH 6.0 Urine Specific [place] <=1.005 Urine Protein Neg (NEG-TRACE) Urine Glucose (UA) >=1000 mg/dL (NEG) Urine Ketones (Stick) Neg mg/dL (NEG) Urine Blood Neg (NEG) Urine Nitrite Neg (NEG) Urine Bilirubin Neg (NEG) Urine Urobilinogen Dipstick 0.2 mg/dL (0.2 mg/dL) Urine Leukocyte Esterase Neg (NEG) Urine RBC Rare /HPF (0-2) Urine WBC 0 /HPF (0-4) Urine Squamous Epithelial Cells Occ /LPF Urine Bacteria 0 /HPF (0-FEW) Urine Opiates Screen Neg (NEG) Urine Methadone Screen Neg (NEG) Urine Barbiturates Neg (NEG) Urine Phencyclidine Screen Neg (NEG) Urine Amphetamine/Methamphetamine Neg (NEG) Urine Benzodiazepines Screen Neg (NEG) Urine Cocaine Screen Neg (NEG) Urine Cannabinoids Screen Neg (NEG) Urine Ethyl Alcohol Neg (NEG) White Blood Count 6.1 x10^3/uL (4.0-11.0) Red Blood Count 5.34 x10^6/uL (4.30-5.70) Hemoglobin 14.2 g/dL (13.0-17.5) Hematocrit 43.8 % (39.0-53.0) Mean Corpuscular Volume 82 fL (79-100) Mean Corpuscular Hemoglobin 27 pg (25-35) Mean Corpuscular Hemoglobin Concent 33 g/dL (31-37) Red Cell Distribution Width 12.9 % (11.5-14.5) Platelet Count 247 x10^3/uL (140-400) Neutrophils (%) (Auto) 52 % (31-73) Lymphocytes (%) (Auto) 37 % (24-48) Monocytes (%) (Auto) 10 % (0-9) H Eosinophils (%) (Auto) 1 % (0-3) Basophils (%) (Auto) 1 % (0-3) Neutrophils # (Auto) 3.1 x10^3uL (1.8-7.7) Lymphocytes # (Auto) 2.3 x10^3/uL (1.0-4.8) Monocytes # (Auto) 0.6 x10^3/uL (0.0-1.1) Eosinophils # (Auto) 0.0 x10^3/uL (0.0-0.7) Basophils # (Auto) 0.0 x10^3/uL (0.0-0.2) Prothrombin Time 9.4 SEC (9.4-11.4) Prothrombin Time INR 0.9 (0.9-1.1) PTT 29 SEC (23-33) Sodium Level 134 mmol/L (136-145) L Potassium Level 4.1 mmol/L (3.5-5.1) Chloride Level 97 mmol/L (98-107) L Carbon Dioxide Level 27 mmol/L (21-32) Anion Gap 10 (6-14) Blood Urea Nitrogen 15 mg/dL (8-26) Creatinine 1.1 mg/dL (0.7-1.3) Estimated GFR (Cockcroft-Gault) 97.9 Glucose Level 532 mg/dL (70-99) *H Calcium Level 9.1 mg/dL (8.5-10.1) Magnesium Level 1.7 mg/dL (1.8-2.4) L Total Bilirubin 0.3 mg/dL (0.2-1.0) Direct Bilirubin 0.1 mg/dL (0.0-0.2) Aspartate Amino Transferase (AST) 12 U/L (15-37) L Alanine Aminotransferase (ALT) 31 U/L (16-63) Alkaline Phosphatase 83 U/L (46-116) Creatine Kinase 410 U/L (39-308) H Troponin I Quantitative < 0.017 ng/mL (0-0.055) Total Protein 8.1 g/dL (6.4-8.2) Albumin 3.8 g/dL (3.4-5.0) Amylase Level 137 U/L (25-115) H Lipase 258 U/L (73-393) EKG EKG [] Radiology/Procedures Radiology/Procedures [] Course & Med Decision Making Course & Med Decision Making Pertinent Labs and Imaging studies reviewed. (See chart for details). Plan admission to Dr. Kaba- for hydration and hyperglycemia control. [] Final Impression Final Impression 1. Diabetes- Hyperglycemia[] 532 2. Elevated Amylase 137 3. Dehydration Dragon Disclaimer Dragon Disclaimer This electronic medical record was generated, in whole or in part, using a voice recognition dictation system. Dragon Disclaimer This chart was dictated in whole or in part using Voice Recognition software in a busy, high-work load, and often noisy Emergency Department environment. It may contain unintended and wholly unrecognized errors or omissions. Discharge Summary Visit Information Final Diagnosis Problems Medical Problems: (1) Hyperglycemia Status: Acute Brief Hospital Course Allergies Allergies Coded Allergies Type Severity Reaction Last Updated Verified No Known Drug Allergies 10/30/17 No Vital Signs Vital Signs Date Time Temp Pulse Resp B/P (MAP) Pulse Ox O2 Delivery O2 Flow Rate FiO2 03/30/18 01:07 95 19 173/93 (119) 97 Room Air 03/30/18 00:26 97.8 Lab Results Laboratory Tests Test 03/30/18 00:10 03/30/18 00:15 03/30/18 00:20 Glucose (Fingerstick) 568 mg/dL (70-99) Urine Collection Type Unknown Urine Color Yellow Urine Clarity Clear Urine pH 6.0 Urine Specific [place] <=1.005 Urine Protein Neg (NEG-TRACE) Urine Glucose (UA) >=1000 mg/dL (NEG) Urine Ketones (Stick) Neg mg/dL (NEG) Urine Blood Neg (NEG) Urine Nitrite Neg (NEG) Urine Bilirubin Neg (NEG) Urine Urobilinogen Dipstick 0.2 mg/dL (0.2 mg/dL) Urine Leukocyte Esterase Neg (NEG) Urine RBC Rare /HPF (0-2) Urine WBC 0 /HPF (0-4) Urine Squamous Epithelial Cells Occ /LPF Urine Bacteria 0 /HPF (0-FEW) Urine Opiates Screen Neg (NEG) Urine Methadone Screen Neg (NEG) Urine Barbiturates Neg (NEG) Urine Phencyclidine Screen Neg (NEG) Urine Amphetamine/Methamphetamine Neg (NEG) Urine Benzodiazepines Screen Neg (NEG) Urine Cocaine Screen Neg (NEG) Urine Cannabinoids Screen Neg (NEG) Urine Ethyl Alcohol Neg (NEG) White Blood Count 6.1 x10^3/uL (4.0-11.0) Red Blood Count 5.34 x10^6/uL (4.30-5.70) Hemoglobin 14.2 g/dL (13.0-17.5) Hematocrit 43.8 % (39.0-53.0) Mean Corpuscular Volume 82 fL (79-100) Mean Corpuscular Hemoglobin 27 pg (25-35) Mean Corpuscular Hemoglobin Concent 33 g/dL (31-37) Red Cell Distribution Width 12.9 % (11.5-14.5) Platelet Count 247 x10^3/uL (140-400) Neutrophils (%) (Auto) 52 % (31-73) Lymphocytes (%) (Auto) 37 % (24-48) Monocytes (%) (Auto) 10 % (0-9) Eosinophils (%) (Auto) 1 % (0-3) Basophils (%) (Auto) 1 % (0-3) Neutrophils # (Auto) 3.1 x10^3uL (1.8-7.7) Lymphocytes # (Auto) 2.3 x10^3/uL (1.0-4.8) Monocytes # (Auto) 0.6 x10^3/uL (0.0-1.1) Eosinophils # (Auto) 0.0 x10^3/uL (0.0-0.7) Basophils # (Auto) 0.0 x10^3/uL (0.0-0.2) Prothrombin Time 9.4 SEC (9.4-11.4) Prothromb Time International Ratio 0.9 (0.9-1.1) Activated Partial Thromboplast Time 29 SEC (23-33) Sodium Level 134 mmol/L (136-145) Potassium Level 4.1 mmol/L (3.5-5.1) Chloride Level 97 mmol/L (98-107) Carbon Dioxide Level 27 mmol/L (21-32) Anion Gap 10 (6-14) Blood Urea Nitrogen 15 mg/dL (8-26) Creatinine 1.1 mg/dL (0.7-1.3) Estimated GFR (Cockcroft-Gault) 97.9 Glucose Level 532 mg/dL (70-99) Calcium Level 9.1 mg/dL (8.5-10.1) Magnesium Level 1.7 mg/dL (1.8-2.4) Total Bilirubin 0.3 mg/dL (0.2-1.0) Direct Bilirubin 0.1 mg/dL (0.0-0.2) Aspartate Amino Transf (AST/SGOT) 12 U/L (15-37) Alanine Aminotransferase (ALT/SGPT) 31 U/L (16-63) Alkaline Phosphatase 83 U/L (46-116) Creatine Kinase 410 U/L (39-308) Troponin I Quantitative < 0.017 ng/mL (0-0.055) Total Protein 8.1 g/dL (6.4-8.2) Albumin 3.8 g/dL (3.4-5.0) Amylase Level 137 U/L (25-115) Lipase 258 U/L (73-393) Brief Hospital Course Mr. Alanis is a 28 old male who presented with hyperglycemia. Admitted to Dr. Kaba- for hydration and glucose control. Discharge Information Condition at Discharge: Improved Dischare Medications Current Medications Sodium Chloride 1,000 ml @ 1,000 mls/hr Q1H IV Last administered on 03/30/18at 01:02; Admin Dose 1,000 MLS/HR; Start 03/30/18 at 00:15; Stop 03/30/18 at 01:14 ; Status DC Insulin Human Regular 150 unit/ Sodium Chloride 151.5 ml @ 0 mls/hr 1X ONCE IV Last administered on 03/30/18at 00:59; Admin Dose 7 MLS/HR; Start 03/30/18 at 00:30; Stop 03/30/18 at 00:41; Status DC Sodium Chloride 150 ml @ As Directed STK-MED ONCE .ROUTE ; Start 03/30/18 at 00 :51; Stop 03/30/18 at 00:53; Status DC Lactated Ringer's 1,000 ml @ 1,000 mls/hr 1X ONCE IV ; Start 03/30/18 at 01:15 ; Stop 03/30/18 at 02:14; Status DC Active Scripts Active Hydrocodone-Ibuprofen 7.5-200 (Hydrocodone/Ibuprofen) 1 Each Tablet 1 Tab PO PRN Q6HRS PRN Pyridium (Phenazopyridine Hcl) 100 Mg Tablet 100 Mg PO BID Lisinopril 10 Mg Tablet 10 Mg PO DAILY Cyclogyl (Cyclopentolate Hcl) 2 Ml Drops 2 Ml OP TID Erythromycin (Erythromycin Base) 3.5 Gm Oint...g. 1 Enrique LEFTEYE TID Ibuprofen 800 Mg Tablet 1 Tab PO TID GINA MUNGUIA MD Mar 29, 2018 23:58
[2018-03-30] MEDS: IV NORMAL SALINE 1,000ML 1,000 ML IV SCH ×5 (00:24→20:54)
[2018-03-30] MEDS ORDERED: INSULIN REGULAR VIAL 150 UNIT in 0.9 % SODIUM CHLORIDE 150ML 150 ML IV ONE ×4 (00:30→17:15)
[2018-03-30 00:43] LABS: BASO % 1 % (0-3); EOS % 1 % (0-3); HEMATOCRIT 43.8 % (39.0-53.0); HEMOGLOBIN 14.2 g/dL (13.0-17.5); LYMPH # 2.3 x10^3/uL (1.0-4.8); LYMPH % 37 % (24-48); MEAN CORPUSCULAR HEMOGLOBIN 27 pg (25-35); MEAN CORPUSCULAR HGB CONC 33 g/dL (31-37); MEAN CORPUSCULAR VOLUME 82 fL (79-100); MONO # 0.6 x10^3/uL (0.0-1.1); MONO % 10 % (0-9); NEUT # 3.1 x10^3uL (1.8-7.7); NEUT % 52 % (31-73); PLATELET COUNT 247 x10^3/uL (140-400); RED BLOOD COUNT 5.34 x10^6/uL (4.30-5.70); RED CELL DISTRIBUTION WIDTH 12.9 % (11.5-14.5); WHITE BLOOD COUNT 6.1 x10^3/uL (4.0-11.0)
[2018-03-30] MEDS ORDERED: 0.9 % SODIUM CHLORIDE 150ML 150 ML ONE (00:51)
[2018-03-30 00:52] LABS: BARBITURATES NEG (NEG); BENZODIAZEPINES NEG (NEG); CANNABINOIDS NEG (NEG); COCAINE NEG (NEG); METHADONE NEG (NEG); OPIATES NEG (NEG); PHENCYCLIDINE NEG (NEG)
[2018-03-30 00:54] LABS: CLARITY,URINE CLEAR; COLOR,URINE YELLOW
[2018-03-30 00:55] LABS: BACTERIA,URINE 0 /HPF (0-FEW); BILIRUBIN,URINE NEG (NEG); GLUCOSE,URINE >=1000 mg/dL (NEG); NITRITE,URINE NEG (NEG); RBC,URINE RARE /HPF (0-2); SQUAMOUS EPITHELIAL CELL,UR OCC /LPF; UROBILINOGEN,URINE 0.2 mg/dL (0.2 mg/dL); WBC,URINE 0 /HPF (0-4)
[2018-03-30 00:59] LABS: ALBUMIN 3.8 g/dL (3.4-5.0); CALCIUM 9.1 mg/dL (8.5-10.1); CREATININE 1.1 mg/dL (0.7-1.3); DIRECT BILIRUBIN 0.1 mg/dL (0.0-0.2); GFR 97.9; MAGNESIUM 1.7 mg/dL (1.8-2.4); POTASSIUM 4.1 mmol/L (3.5-5.1); TOTAL BILIRUBIN 0.3 mg/dL (0.2-1.0); TOTAL PROTEIN 8.1 g/dL (6.4-8.2)
[2018-03-30 00:59] LABS: AMPHETAMINE/METHAMPHETAMINE NEG (NEG)
[2018-03-30] MEDS ORDERED: IV RINGERS SOLUTION,LACTATED 1,000 ML IV ONE (01:15)
[2018-03-30] MEDS ORDERED: ONDANSETRON PF 4 MG/2 ML VIAL. IV PRN (01:30)
[2018-03-30 02:00] VITALS: BP 144/87
[2018-03-30] MEDS: IV RINGERS SOLUTION,LACTATED 1,000 ML IV SCH ×3 (02:22→11:30)
[2018-03-30] MEDS ORDERED: INSU100I30 SQ (03:33)
[2018-03-30 06:33] LABS: CALCIUM 8.3 mg/dL (8.5-10.1); CREATININE 0.8 mg/dL (0.7-1.3); GFR 141.4; POTASSIUM 3.5 mmol/L (3.5-5.1)
[2018-03-30 06:38] VITALS: BP 132/81
[2018-03-30] MEDS ORDERED: DULA1.5P SQ (07:26)
[2018-03-30] MEDS: PHENAZOPYRIDINE 100 MG TABLET. PO SCH ×2 (10:00→11:33)
[2018-03-30] MEDS ORDERED: HYDROcodon/IBUPROFEN 7.5/200MG 1 TAB TABLET PO PRN (10:00)
[2018-03-30] MEDS ORDERED: DEXTROSE 50% 25 GM / 50ML DISP.SYRIN. IV PRN (11:15)
[2018-03-30 11:29] VITALS: BP 153/79
[2018-03-30] MEDS: IBUPROFEN 800 MG TABLET. PO SCH ×3 (11:33→20:54)
[2018-03-30] MEDS: LISINOPRIL 10 MG TABLET PO SCH (11:33)
[2018-03-30] MEDS: CYCLOPENTOLATE 1% OPTH SOLUTION 2ML BOTTLE. OU SCH ×2 (14:00→14:59)
[2018-03-30] MEDS: ERYTHROMYCIN 0.5% OPHTH OINTMENT 1GM TUBE. OU SCH ×2 (14:00→14:59)
[2018-03-30] MEDS ORDERED: POTASSIUM CHLORIDE 20 MEQ TABLET.ER. PO ONE (14:00)
[2018-03-30 15:03] VITALS: BP 132/88
--- NOTE | 2018-03-30 19:49 | HP ---
ADMIT DATE: 03/30/2018 HISTORY OF PRESENT ILLNESS: This is a 28-year-old male came in through the Emergency Room with severe hyperglycemia, cannot afford his diabetic medications because of the increased cost. The patient has been off his meds for 6 weeks, are too expensive. Sugars, I guess were 500 to 600 when seen in the Emergency Room. He was feeling very lethargic and run down. As a result of this, he was admitted to the hospital for further evaluation, placed on an insulin drip, hyperglycemia protocol and make further evaluation on him as indicated. PAST MEDICAL HISTORY: Headaches, pneumonia, obesity, abdominal pain, type 1 diabetes, gastroesophageal reflux, depression and anxiety. FAMILY HISTORY: Mother and father with diabetes. Mother and father also with coronary artery disease and father with cancer. ALLERGIES: No known drug allergies. MEDICATIONS: The patient normally takes a combination of lisinopril 10 mg a day, ibuprofen p.r.n., hydrocodone p.r.n., erythromycin base ointment for his left eye t.i.d. Also, cyclopentolate 2 ____ drops for pain. Trulicity subcutaneously, Tresiba 60 units at bedtime and Pyridium p.r.n. ALLERGIES: The patient has no known drug allergies. SOCIAL HISTORY: Denies smoking, alcohol or drug use. REVIEW OF SYSTEMS: General lethargy, achiness, headache and just feeling extremely lethargic. No chest pain, no shortness of breath. PHYSICAL EXAMINATION: GENERAL: On exam, this is a pleasant -[place] gentleman, in moderate amount of distress. VITAL SIGNS: Blood pressure 170/80, respiration 18, pulse 110, afebrile. HEENT: The patient's head was atraumatic, normocephalic. Eyes: PERRLA without jaundice. The mouth and throat were normal. NECK: Supple, no JVD or thyromegaly. LUNGS: Diminished throughout, but clear. CARDIOVASCULAR: Regular sinus rhythm. ABDOMEN: Soft, nontender, no rebound or guarding. Positive bowel sounds, no hepatosplenomegaly was noted. EXTREMITIES: No clubbing, cyanosis nor edema. NEUROLOGIC: The patient otherwise is neurologically intact. LABORATORY DATA: Blood sugars initially were in the 500s ____ 600. Magnesium was low and he has a bit of hypothyroidism as well. IMPRESSION: Type 1 diabetes, hyperglycemia, dehydration, hypothyroidism, morbid obesity, noncompliance due to economics and cost of medication. The patient will be continued to be monitored, IV fluids, IV insulin. Continue to monitor. Discussed with pharmacy because we will have all his home meds available here. We will continue to monitor the patient accordingly and make further evaluation on him as indicated. TIM VORA MD DR: ARGENIS/nts JOB#: [id number] / [id number]
[2018-03-30 19:50] VITALS: BP 137/81
[2018-03-30] MEDS ORDERED: INSULIN GLARGINE 300 UNITS/3 ML INSULN.PEN. SQ SCH ×2 (21:00)
[2018-03-30] MEDS: INSULIN LISPRO 300 UNITS/3 ML INSULN.PEN. SQ SCH (21:20)
[2018-03-30 22:50] VITALS: BP 133/87
[2018-03-31 00:10] LABS: HEMOGLOBIN A1C 11.9 % (4.8-5.6)
[2018-03-31] MEDS: IV NORMAL SALINE 1,000ML 1,000 ML IV SCH ×2 (01:57→06:40)
[2018-03-31 05:55] VITALS: BP 128/81
[2018-03-31 06:45] LABS: BASO % 0 % (0-3); EOS # 0.1 x10^3/uL (0.0-0.7); EOS % 2 % (0-3); HEMATOCRIT 38.7 % (39.0-53.0); HEMOGLOBIN 12.8 g/dL (13.0-17.5); LYMPH # 2.6 x10^3/uL (1.0-4.8); LYMPH % 47 % (24-48); MEAN CORPUSCULAR HEMOGLOBIN 27 pg (25-35); MEAN CORPUSCULAR HGB CONC 33 g/dL (31-37); MEAN CORPUSCULAR VOLUME 82 fL (79-100); MONO # 0.4 x10^3/uL (0.0-1.1); MONO % 7 % (0-9); NEUT # 2.5 x10^3uL (1.8-7.7); NEUT % 44 % (31-73); PLATELET COUNT 208 x10^3/uL (140-400); RED BLOOD COUNT 4.73 x10^6/uL (4.30-5.70); RED CELL DISTRIBUTION WIDTH 12.5 % (11.5-14.5); WHITE BLOOD COUNT 5.6 x10^3/uL (4.0-11.0)
[2018-03-31 06:56] LABS: CALCIUM 7.9 mg/dL (8.5-10.1); CREATININE 0.7 mg/dL (0.7-1.3); GFR 164.9; POTASSIUM 3.9 mmol/L (3.5-5.1)
[2018-03-31 08:18] VITALS: BP 128/81
[2018-03-31] MEDS: IBUPROFEN 800 MG TABLET. PO SCH (08:18)
[2018-03-31] MEDS: LISINOPRIL 10 MG TABLET PO SCH (08:18)
[2018-03-31] MEDS: INSULIN LISPRO 300 UNITS/3 ML INSULN.PEN. SQ SCH (08:21)
[2018-03-31] MEDS ORDERED: NON FORMULARY ITEM (Dulaglutide (Trulicity) 1.5 MG) SQ SCH (16:00)
--- NOTE | 2018-03-31 16:00 | DS ---
DATE OF DISCHARGE: 03/31/2018 HOSPITAL COURSE: A 28-year-old male in with hyperglycemia. The patient came in through the Emergency Room with a significant elevated sugar of nearly 600 and as a result of this, the patient was admitted for IV fluids. He was placed on a diabetic hyperglycemic type protocol. He was given IV fluids. The reason his sugar went up because he could not afford the insulin that he was normally taking. In any case, the patient made a good excellent progress with IV fluids and he was on an insulin drip as well. He made good progress and he was discharged home. He was given samples of [place] and will be monitored carefully as an outpatient. His A1c was in the 11.9 range. Electrolytes were slightly off in terms of the low sodium, but other than that, his thyroid was also a TSH was elevated at 4.751. In any case, he made excellent progress during the rest of his hospitalization. He was discharged home. See MRAD. Diabetic diet. ACTIVITY: As tolerated. FOLLOWUP: He will follow up accordingly as an outpatient. IMPRESSION: Severe hyperglycemia, dehydration, type 1 diabetes, obesity. He will continue to be monitored carefully as an outpatient. TIM VORA MD DR: ARGENIS/katy JOB#: [id number] / [id number]
== END 2018-03-31 10:25 | disposition home or self-care (01) | DRG 637 ==
LOC: ER 23:57 → 1 SOUTH 03-30 01:26
PROVIDERS: ADMIT Family Medicine; ATTEND Family Medicine
DX: E10.65 Type 1 diabetes mellitus with hyperglycemia (principal); N17.0 Acute kidney failure with tubular necrosis; E03.9 Hypothyroidism, unspecified; E66.01 Morbid (severe) obesity due to excess calories; E86.0 Dehydration; K21.9 Gastro-esophageal reflux disease without esophagitis; Z79.4 Long term (current) use of insulin; Z80.9 Family history of malignant neoplasm, unspecified; Z82.49 Family history of ischemic heart disease and other diseases of the circulatory system; Z91.19 Patient's noncompliance with other medical treatment and regimen; Z83.3 Family history of diabetes mellitus; F32.9 Major depressive disorder, single episode, unspecified; F41.9 Anxiety disorder, unspecified; Z87.01 Personal history of pneumonia (recurrent); N18.1 Chronic kidney disease, stage 1
CPT/HCPCS: 36415; 80048; 80076; 80307; 81001; 82150; 82550; 82947; 83036; 83690; 83735; 84443; 84484; 85025; 85610; 85730; J1815; J7120; 99285-25; J7030

== ENCOUNTER 2018-07-22 12:52 | Emergency (ER) | payer BC ==
[~2018-07-22] VITALS: Ht 180.3 cm; Wt 132.6 kg
[~2018-07-22 12:52] MED LIST changes: +DULA1.5P SQ; +INSU100I30 SQ
--- NOTE | 2018-07-22 13:24 | PHYS DOC ---
Past History Past Medical History: Diabetes, Hypertension, Pneumonia (LYNNETTE GRANT DO) Past Surgical History: No Surgical History (LYNNETTE GRANT DO) Smoking: Non-smoker Alcohol Use: None Drug Use: None (LYNNETTE GRANT DO) Adult General Chief Complaint Chief Complaint: PSYCH EVALUATION HPI HPI 28-year-old male presents with suicidal ideation. He is coming from Dr. Vora's office. The patient told me that his work is making him very stressed out. 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 He feels like he is treated unfairly sometimes. This is made him have fleeting thoughts of hurting other employees as well as thoughts of ending his life so he has not messed with it. The patient states he has no plan for either of these. These thoughts or displacement to him. The patient used to be on anti-depressant, but ran out of that medication several weeks ago. He denies any medical complaints or pain. Denies fever or chills. (LYNNETTE GRANT DO) Review of Systems Review of Systems Constitutional: Denies fever or chills [] Eyes: Denies change in visual acuity, redness, or eye pain [] HENT: Denies nasal congestion or sore throat [] Respiratory: Denies cough or shortness of breath [] Cardiovascular: No additional information not addressed in HPI [] GI: Denies abdominal pain, nausea, vomiting, bloody stools or diarrhea [] : Denies dysuria or hematuria [] Musculoskeletal: Denies back pain or joint pain [] Integument: Denies rash or skin lesions [] Neurologic: Denies headache, focal weakness or sensory changes [] Endocrine: Denies polyuria or polydipsia [] All other systems were reviewed and found to be within normal limits, except as documented in this note. (LYNNETTE GRANT DO) Allergies Allergies Allergies Coded Allergies Type Severity Reaction Last Updated Verified No Known Drug Allergies 10/30/17 No (LYNNETTE GRANT DO) Physical Exam Physical Exam Constitutional: Well developed, obese, well nourished, no acute distress, non- toxic appearance. [] HENT: Normocephalic, atraumatic, bilateral external ears normal, oropharynx moist, no oral exudates, nose normal. [] Eyes: PERRLA, EOMI, conjunctiva normal, no discharge. [] Neck: Normal range of motion, no tenderness, supple, no stridor. [] Cardiovascular:Heart rate regular rhythm, no murmur [] Lungs & Thorax: Bilateral breath sounds clear to auscultation [] Abdomen: Bowel sounds normal, soft, no tenderness, no masses, no pulsatile masses. [] Skin: Warm, dry, no erythema, no rash. [] Back: No tenderness, no CVA tenderness. [] Extremities: No tenderness, no cyanosis, no clubbing, ROM intact, no edema. [] Neurologic: Alert and oriented X 3, normal motor function, normal sensory function, no focal deficits noted. [] Psychologic: Affect flat, judgement normal, mood depressed. [] (LYNNETTE GRANT DO) EKG EKG [] (LYNNETTE GRANT DO) Radiology/Procedures Radiology/Procedures [] (LYNNETTE GRANT DO) Course & Med Decision Making Course & Med Decision Making Pertinent Labs and Imaging studies reviewed. (See chart for details) The patient's labs are unremarkable except for an elevated glucose. His urinalysis is negative. His urine drug screen is negative. The patient's psychiatric screening resulted in recommendation for involuntary commitment. The patient is very distressed about this because he has 2 jobs and bills to pay. He thought he was going to be getting a follow-up appointment to restart his antidepressants. I have offered to the patient and we will attempt to have him re-screened. My personal opinion is that he is not a danger, but I will defer to the experts in this case. I am signing the patient out to Dr. Thomas at 1822. [] (LYNNETTE GRANT DO) Course & Med Decision Making After re-assessment by counseling center and tele-psych- patient to follow-up at counseling center and his counselor. Patient is going home with Mother meaghan. All parties involved felt that he was low risk for self or other injury. Patient's Zoloft prescription renewed 100 mg a day. Patient return if any concerns. See Tele- psych. report. (GINA THOMAS MD) Dragon Disclaimer Dragon Disclaimer This electronic medical record was generated, in whole or in part, using a voice recognition dictation system. (LYNNETTE GRANT DO) Departure Departure: Referrals: TIM VORA MD (PCP) Scripts Sertraline Hcl (ZOLOFT) 100 Mg Tablet 100 MG PO DAILY for ANTI-DEPRESSANT for 30 Days, #30 TAB 0 Refills Prov: GINA THOMAS MD 07/22/18 Discharge Summary Visit Information Final Diagnosis Problems Medical Problems: (1) Anxiety Status: Acute (2) Depression Status: Acute (GINA THOMAS MD) Brief Hospital Course Allergies Allergies Coded Allergies Type Severity Reaction Last Updated Verified No Known Drug Allergies 10/30/17 No Vital Signs Vital Signs Date Time Temp Pulse Resp B/P (MAP) Pulse Ox O2 Delivery O2 Flow Rate FiO2 07/22/18 21:00 75 16 134/72 (92) 99 Room Air 07/22/18 12:52 98.1 Lab Results Laboratory Tests Test 07/22/18 13:23 White Blood Count 6.0 x10^3/uL (4.0-11.0) Red Blood Count 5.53 x10^6/uL (4.30-5.70) Hemoglobin 14.9 g/dL (13.0-17.5) Hematocrit 44.8 % (39.0-53.0) Mean Corpuscular Volume 81 fL (79-100) Mean Corpuscular Hemoglobin 27 pg (25-35) Mean Corpuscular Hemoglobin Concent 33 g/dL (31-37) Red Cell Distribution Width 13.3 % (11.5-14.5) Platelet Count 267 x10^3/uL (140-400) Neutrophils (%) (Auto) 58 % (31-73) Lymphocytes (%) (Auto) 31 % (24-48) Monocytes (%) (Auto) 10 % (0-9) Eosinophils (%) (Auto) 1 % (0-3) Basophils (%) (Auto) 1 % (0-3) Neutrophils # (Auto) 3.4 x10^3uL (1.8-7.7) Lymphocytes # (Auto) 1.9 x10^3/uL (1.0-4.8) Monocytes # (Auto) 0.6 x10^3/uL (0.0-1.1) Eosinophils # (Auto) 0.0 x10^3/uL (0.0-0.7) Basophils # (Auto) 0.1 x10^3/uL (0.0-0.2) Urine Collection Type Void Urine Color Kellie Urine Clarity Clear Urine pH 6.0 Urine Specific [place] >=1.030 Urine Protein >100 mg/dl (NEG-TRACE) Urine Glucose (UA) Neg mg/dL (NEG) Urine Ketones (Stick) Neg mg/dL (NEG) Urine Blood Trace (NEG) Urine Nitrite Neg (NEG) Urine Bilirubin Neg (NEG) Urine Urobilinogen Dipstick 0.2 mg/dL (0.2 mg/dL) Urine Leukocyte Esterase Neg (NEG) Urine RBC 3-5 /HPF (0-2) Urine WBC Occ /HPF (0-4) Urine Squamous Epithelial Cells Occ /LPF Urine Bacteria Few /HPF (0-FEW) Urine Hyaline Casts Occ /HPF Urine Mucus Mod /LPF Sodium Level 140 mmol/L (136-145) Potassium Level 3.6 mmol/L (3.5-5.1) Chloride Level 102 mmol/L (98-107) Carbon Dioxide Level 28 mmol/L (21-32) Anion Gap 10 (6-14) Blood Urea Nitrogen 13 mg/dL (8-26) Creatinine 0.9 mg/dL (0.7-1.3) Estimated GFR (Cockcroft-Gault) 123.4 BUN/Creatinine Ratio 14 (6-20) Glucose Level 189 mg/dL (70-99) Calcium Level 9.6 mg/dL (8.5-10.1) Total Bilirubin 0.7 mg/dL (0.2-1.0) Aspartate Amino Transf (AST/SGOT) 29 U/L (15-37) Alanine Aminotransferase (ALT/SGPT) 42 U/L (16-63) Alkaline Phosphatase 71 U/L (46-116) Total Protein 8.1 g/dL (6.4-8.2) Albumin 3.7 g/dL (3.4-5.0) Albumin/Globulin Ratio 0.8 (1.0-1.7) Urine Opiates Screen Neg (NEG) Urine Methadone Screen Neg (NEG) Urine Barbiturates Neg (NEG) Urine Phencyclidine Screen Neg (NEG) Urine Amphetamine/Methamphetamine Neg (NEG) Urine Benzodiazepines Screen Neg (NEG) Urine Cocaine Screen Neg (NEG) Urine Cannabinoids Screen Neg (NEG) Urine Ethyl Alcohol Neg (NEG) Brief Hospital Course Mr. Alanis is a 28 old male who presented with request for refill of his Zoloft . Rx. (GINA THOMAS MD) Discharge Information Condition at Discharge: Improved, Stable Disposition/Orders: D/C to Home Dischare Medications Current Medications Lorazepam (Ativan) 2 mg 1X ONCE PO Last administered on 07/22/18at 20:57; Start 07/22/18 at 21:00; Stop 07/22/18 at 21:01; Status DC Lorazepam (Ativan) 1 mg STK-MED ONCE .ROUTE ; Start 07/22/18 at 20:53; Stop 07/22/18 at 21:01; Status DC Active Scripts Active Zoloft (Sertraline Hcl) 100 Mg Tablet 100 Mg PO DAILY 30 Days Hydrocodone-Ibuprofen 7.5-200 (Hydrocodone/Ibuprofen) 1 Each Tablet 1 Tab PO PRN Q6HRS PRN Pyridium (Phenazopyridine Hcl) 100 Mg Tablet 100 Mg PO BID Lisinopril 10 Mg Tablet 10 Mg PO DAILY Cyclogyl (Cyclopentolate Hcl) 2 Ml Drops 2 Ml OP TID Erythromycin (Erythromycin Base) 3.5 Gm Oint...g. 1 Enrique LEFTEYE TID Ibuprofen 800 Mg Tablet 1 Tab PO TID Reported Trulicity (Dulaglutide) 1.5 Mg/0.5 Ml Pen.injctr 1.5 Mg SQ QM Tresiba Flextouch U-100 (Insulin Degludec) 100 Unit/1 Ml Insuln.pen 60 Unit SQ HS (GINA THOMAS MD) Dragon Disclaimer This chart was dictated in whole or in part using Voice Recognition software in a busy, high-work load, and often noisy Emergency Department environment. It may contain unintended and wholly unrecognized errors or omissions. (GINA THOMAS MD) LYNNETTE GRANT DO July 22, 2018 13:24 GINA THOMAS MD July 23, 2018 00:24
[2018-07-22 13:34] LABS: BASO # 0.1 x10^3/uL (0.0-0.2); BASO % 1 % (0-3); EOS % 1 % (0-3); HEMATOCRIT 44.8 % (39.0-53.0); HEMOGLOBIN 14.9 g/dL (13.0-17.5); LYMPH # 1.9 x10^3/uL (1.0-4.8); LYMPH % 31 % (24-48); MEAN CORPUSCULAR HEMOGLOBIN 27 pg (25-35); MEAN CORPUSCULAR HGB CONC 33 g/dL (31-37); MEAN CORPUSCULAR VOLUME 81 fL (79-100); MONO # 0.6 x10^3/uL (0.0-1.1); MONO % 10 % (0-9); NEUT # 3.4 x10^3uL (1.8-7.7); NEUT % 58 % (31-73); PLATELET COUNT 267 x10^3/uL (140-400); RED BLOOD COUNT 5.53 x10^6/uL (4.30-5.70); RED CELL DISTRIBUTION WIDTH 13.3 % (11.5-14.5)
[2018-07-22 13:43] LABS: AMPHETAMINE/METHAMPHETAMINE NEG (NEG); BARBITURATES NEG (NEG); BENZODIAZEPINES NEG (NEG); CANNABINOIDS NEG (NEG); COCAINE NEG (NEG); METHADONE NEG (NEG); OPIATES NEG (NEG); PHENCYCLIDINE NEG (NEG)
[2018-07-22 13:45] LABS: BILIRUBIN,URINE NEG (NEG); CLARITY,URINE CLEAR; COLOR,URINE AMBER; GLUCOSE,URINE NEG (NEG)
[2018-07-22 13:46] LABS: BACTERIA,URINE FEW /HPF (0-FEW); HYALINE CASTS, URINE OCC /HPF; NITRITE,URINE NEG (NEG); SQUAMOUS EPITHELIAL CELL,UR OCC /LPF; UROBILINOGEN,URINE 0.2 mg/dL (0.2 mg/dL)
[2018-07-22 13:47] LABS: WBC,URINE OCC /HPF (0-4)
[2018-07-22 13:50] LABS: ALBUMIN 3.7 g/dL (3.4-5.0); ALBUMIN/GLOBULIN RATIO 0.8 (1.0-1.7); CALCIUM 9.6 mg/dL (8.5-10.1); CREATININE 0.9 mg/dL (0.7-1.3); GFR 123.4; POTASSIUM 3.6 mmol/L (3.5-5.1); TOTAL BILIRUBIN 0.7 mg/dL (0.2-1.0); TOTAL PROTEIN 8.1 g/dL (6.4-8.2)
[2018-07-22] MEDS ORDERED: SERT100T PO (20:51)
[2018-07-22] MEDS ORDERED: LORazepam 1 MG TABLET ONE (20:53)
[2018-07-22 21:00] VITALS: BP 134/72
[2018-07-22] MEDS ORDERED: LORazepam 1 MG TABLET PO ONE (21:00)
== END 2018-07-22 21:00 | disposition home or self-care (01) ==
LOC: ER 12:52 → EEVIPCON 12:52 → ER 21:00
DX: F41.9 Anxiety disorder, unspecified (principal); F32.9 Major depressive disorder, single episode, unspecified; E11.65 Type 2 diabetes mellitus with hyperglycemia; I10 Essential (primary) hypertension
CPT/HCPCS: 36415; 80053; 80307; 81001; 85025; 99284

== ENCOUNTER 2018-09-07 17:27 | Emergency (ER) | payer BC ==
[~2018-09-07] VITALS: Ht 180.3 cm; Wt 132.6 kg
[2018-09-07 17:27] VITALS: BP 156/80
[~2018-09-07 17:27] MED LIST changes: +SERT100T PO
--- NOTE | 2018-09-07 17:41 | EKG ---
[address] [address] Test Date: 2018-09-07 Test Time: 17:39:08 Pat Name: SHELLEY CURRY Department: Room: Gender: M [place]: : 1990 Requested By: LYNNETTE GRANT Order Number: [id number] Reading MD: Measurements Intervals [place] Rate: 104 P: 53 [place]: 116 QRS: 59 QRSD: 86 T: -35 QT: 318 QTc: 418 Interpretive Statements SINUS TACHYCARDIA T ABNORMALITY IN ANTERIOR LEADS INFEROLATERAL LEADS ABNORMAL ECG RI6.01 No previous ECG available for comparison
[2018-09-07] MEDS ORDERED: IV NORMAL SALINE 1,000ML 1,000 ML IV ONE ×2 (17:45→18:30)
[2018-09-07 17:52] LABS: BASO # 0.1 x10^3/uL (0.0-0.2); BASO % 1 % (0-3); EOS # 0.1 x10^3/uL (0.0-0.7); EOS % 2 % (0-3); HEMATOCRIT 44.2 % (39.0-53.0); HEMOGLOBIN 14.7 g/dL (13.0-17.5); LYMPH # 2.4 x10^3/uL (1.0-4.8); LYMPH % 36 % (24-48); MEAN CORPUSCULAR HEMOGLOBIN 27 pg (25-35); MEAN CORPUSCULAR HGB CONC 33 g/dL (31-37); MEAN CORPUSCULAR VOLUME 82 fL (79-100); MONO # 0.7 x10^3/uL (0.0-1.1); MONO % 10 % (0-9); NEUT # 3.5 x10^3uL (1.8-7.7); NEUT % 52 % (31-73); PLATELET COUNT 262 x10^3/uL (140-400); WHITE BLOOD COUNT 6.8 x10^3/uL (4.0-11.0)
[2018-09-07 18:05] LABS: ALBUMIN 3.7 g/dL (3.4-5.0); ALBUMIN/GLOBULIN RATIO 0.8 (1.0-1.7); CALCIUM 9.5 mg/dL (8.5-10.1); CREATININE 0.9 mg/dL (0.7-1.3); GFR 123.4; POTASSIUM 3.5 mmol/L (3.5-5.1); TOTAL BILIRUBIN 0.4 mg/dL (0.2-1.0); TOTAL PROTEIN 8.3 g/dL (6.4-8.2)
[2018-09-07 18:57] LABS: BACTERIA,URINE 0 /HPF (0-FEW); BILIRUBIN,URINE NEG (NEG); CLARITY,URINE CLEAR; COLOR,URINE YELLOW; GLUCOSE,URINE >=1000 mg/dL (NEG); NITRITE,URINE NEG (NEG); SQUAMOUS EPITHELIAL CELL,UR OCC /LPF; UROBILINOGEN,URINE 1 mg/dL (0.2 mg/dL)
[2018-09-07 18:58] LABS: HYALINE CASTS, URINE OCC /HPF
[2018-09-07] MEDS ORDERED: MAGNESIUM SULFATE 2GM 50 ML IV ONE (19:00)
--- NOTE | 2018-09-07 19:30 | ED.ADGEN ---
Past History Past Medical History: Anxiety, Depression, Diabetes, Hypertension, Pneumonia Past Surgical History: No Surgical History Smoking: Non-smoker Alcohol Use: None Drug Use: None Adult General Chief Complaint Chief Complaint Muscle cramps HPI HPI Patient is a 28-year-old insulin dependent male who presents with bilateral muscle cramps of upper and lower extremities. Symptoms been intermittent times one month, worse in the past week. Patient states he is been noncompliant with his insulin. He takes long-acting insulin and occasionally mealtime insulin. He states his blood sugars typically well controlled in the 100-200 range. Does report polyuria and polydipsia. No fever chills, nausea vomiting or sweats. Denies dizziness lightheadedness. No chest pain shortness of breath. Denies paresthesias, extremity weakness or loss of sensation. No new medications. No other acute symptoms or complaints. Patient is in the process of obtaining a new primary care provider. [] Review of Systems Review of Systems Review symptoms as per history of present illness. All other review symptoms are negative. All other systems were reviewed and found to be within normal limits, except as documented in this note. Current Medications Current Medications Current Medications Medications (Trade) Dose Ordered Sig/Boy Start Time Stop Time Status Last Admin Dose Admin Magnesium Sulfate 50 ml @ 25 mls/hr 1X ONCE 09/07/18 19:00 09/07/18 20:59 Sodium Chloride 1,000 ml @ 1,000 mls/hr 1X ONCE 09/07/18 18:30 09/07/18 19:29 09/07/18 18:21 1,000 MLS/HR Allergies Allergies Allergies Coded Allergies Type Severity Reaction Last Updated Verified No Known Drug Allergies 10/30/17 No Physical Exam Physical Exam Constitutional: Well developed, well nourished, no acute distress, non-toxic appearance. [] HENT: Normocephalic, atraumatic, bilateral external ears normal, oropharynx moist, no oral exudates, nose normal. [] Eyes: PERRLA, EOMI, conjunctiva normal, no discharge. [] Neck: Normal range of motion, no tenderness, supple, no stridor. [] Cardiovascular:Heart rate regular rhythm, no murmur [] Lungs & Thorax: Bilateral breath sounds clear to auscultation [] Abdomen: Bowel sounds normal, soft, no tenderness, no masses, no pulsatile masses. [] Skin: Warm, dry, no erythema, no rash. [] Back: No tenderness, no CVA tenderness. [] Extremities: No tenderness, no cyanosis, no clubbing, ROM intact, no edema. [] Neurologic: Alert and oriented X 3, normal motor function, normal sensory function, no focal deficits noted. [] Psychologic: Affect normal, judgement normal, mood normal. [] Current Patient Data Vital Signs Vital Signs Date Time Temp Pulse Resp B/P (MAP) Pulse Ox O2 Delivery O2 Flow Rate FiO2 09/07/18 17:27 Room Air 09/07/18 17:27 102 20 100 Lab Results Laboratory Tests Test 09/07/18 17:34 09/07/18 17:36 09/07/18 18:26 Glucose (Fingerstick) 162 mg/dL (70-99) H White Blood Count 6.8 x10^3/uL (4.0-11.0) Red Blood Count 5.40 x10^6/uL (4.30-5.70) Hemoglobin 14.7 g/dL (13.0-17.5) Hematocrit 44.2 % (39.0-53.0) Mean Corpuscular Volume 82 fL (79-100) Mean Corpuscular Hemoglobin 27 pg (25-35) Mean Corpuscular Hemoglobin Concent 33 g/dL (31-37) Red Cell Distribution Width 13.0 % (11.5-14.5) Platelet Count 262 x10^3/uL (140-400) Neutrophils (%) (Auto) 52 % (31-73) Lymphocytes (%) (Auto) 36 % (24-48) Monocytes (%) (Auto) 10 % (0-9) H Eosinophils (%) (Auto) 2 % (0-3) Basophils (%) (Auto) 1 % (0-3) Neutrophils # (Auto) 3.5 x10^3uL (1.8-7.7) Lymphocytes # (Auto) 2.4 x10^3/uL (1.0-4.8) Monocytes # (Auto) 0.7 x10^3/uL (0.0-1.1) Eosinophils # (Auto) 0.1 x10^3/uL (0.0-0.7) Basophils # (Auto) 0.1 x10^3/uL (0.0-0.2) Sodium Level 144 mmol/L (136-145) Potassium Level 3.5 mmol/L (3.5-5.1) Chloride Level 104 mmol/L (98-107) Carbon Dioxide Level 31 mmol/L (21-32) Anion Gap 9 (6-14) Blood Urea Nitrogen 10 mg/dL (8-26) Creatinine 0.9 mg/dL (0.7-1.3) Estimated GFR (Cockcroft-Gault) 123.4 BUN/Creatinine Ratio 11 (6-20) Glucose Level 172 mg/dL (70-99) H Calcium Level 9.5 mg/dL (8.5-10.1) Magnesium Level 1.7 mg/dL (1.8-2.4) L Total Bilirubin 0.4 mg/dL (0.2-1.0) Aspartate Amino Transferase (AST) 18 U/L (15-37) Alanine Aminotransferase (ALT) 40 U/L (16-63) Alkaline Phosphatase 84 U/L (46-116) Troponin I Quantitative < 0.017 ng/mL (0-0.055) Total Protein 8.3 g/dL (6.4-8.2) H Albumin 3.7 g/dL (3.4-5.0) Albumin/Globulin Ratio 0.8 (1.0-1.7) L Urine Collection Type Unknown Urine Color Yellow Urine Clarity Clear Urine pH 6.5 Urine Specific [place] >=1.030 Urine Protein >100 mg/dl (NEG-TRACE) Urine Glucose (UA) >=1000 mg/dL (NEG) Urine Ketones (Stick) Trace mg/dL (NEG) Urine Blood Trace (NEG) Urine Nitrite Neg (NEG) Urine Bilirubin Neg (NEG) Urine Urobilinogen Dipstick 1 mg/dL (0.2 mg/dL) Urine Leukocyte Esterase Neg (NEG) Urine RBC 1-2 /HPF (0-2) Urine WBC 1-4 /HPF (0-4) Urine Squamous Epithelial Cells Occ /LPF Urine Bacteria 0 /HPF (0-FEW) Urine Hyaline Casts Occ /HPF Urine Mucus Mod /LPF EKG EKG [EKG: Reviewed sinus tach, rate 105, no acute ST-T wave changes, T-wave abnormalities in anterior and lateral leads. Etiology unclear.] Radiology/Procedures Radiology/Procedures [] Course & Med Decision Making Course & Med Decision Making Pertinent Labs and Imaging studies reviewed. (See chart for details) [Patient given fluid bolus and IV magnesium. Vital signs stable. EKG abnormal, significance unclear. Patient denies chest pain.. Symptoms improved with treatment. Will referred to local PCP. Return precautions reviewed. Patient verbalizes understanding and agreement discharge instructions prior to dep arture.] Final Impression Final Impression 1. Muscle cramps 2. Hypomagnesemia 3. Insulin-dependent diabetes] Fidelia Disclaimer Fidelia Disclaimer This electronic medical record was generated, in whole or in part, using a voice recognition dictation system. LYNNETTE PATEL DO Sep 07, 2018 19:30
--- NOTE | 2018-09-08 04:13 | RAD ---
Chest radiograph 09/07/2018 5:29 PM INDICATION: Chest pain COMPARISON: September 22, 2016 TECHNIQUE: Portable upright frontal view of the chest is provided. FINDINGS: The cardiomediastinal silhouette is within normal limits. There are no pleural effusions. There is no pulmonary vascular congestion. There is no pneumothorax. The lungs are clear. No significant osseous abnormality is identified. IMPRESSION: No acute cardiopulmonary process. Electronically signed by: Juana Agarwal MD (09/08/2018 4:10 AM) [facility]
== END 2018-09-07 21:20 | disposition home or self-care (01) ==
LOC: ER 17:27
DX: M62.831 Muscle spasm of calf (principal); R25.2 Cramp and spasm; E83.42 Hypomagnesemia; E11.9 Type 2 diabetes mellitus without complications; F41.9 Anxiety disorder, unspecified; F32.9 Major depressive disorder, single episode, unspecified; I10 Essential (primary) hypertension; Z79.4 Long term (current) use of insulin
CPT/HCPCS: 36415; 71045; 80053; 81001; 82947; 83735; 84484; 85025; 93005; 96365; 96366; 99285; J3475; J7030

== ENCOUNTER 2019-01-17 12:50 | Emergency (ER) | payer BC ==
[~2019-01-17] VITALS: Ht 180.3 cm; Wt 132.6 kg
[2019-01-17 12:58] VITALS: BP 142/93
[2019-01-17] MEDS ORDERED: IV NORMAL SALINE 1,000ML 1,000 ML IV SCH (13:05)
--- NOTE | 2019-01-17 13:40 | PHYS DOC ---
Past History Past Medical History: Diabetes Past Surgical History: No Surgical History Smoking: Non-smoker Alcohol Use: None Drug Use: None Adult General Chief Complaint Chief Complaint: BLOOD SUGAR PROBLEM HPI HPI Patient is a 28-year-old male presents complaining of high blood sugars for the past month, increased thirst, increased urination. Patient is getting over a cold, no fevers, mild cough nonproductive. Postnasal drainage is present. This has been improving. Patient was started on metformin approximately a month ago to assist with his high blood sugars but this is not done much to help him. Patient also notes that he had an ulcer/boil on his back that popped. He has not been on any antibiotics for this. This is improving. He denies any fever. He denies any chest pain or palpitations. Patient admits to having 3 small 3 [employer] bars with recent [employer] activities.[] Review of Systems Review of Systems Constitutional: Denies fever or chills [] Eyes: Denies change in visual acuity, redness, or eye pain [] HENT: Denies nasal congestion or sore throat [] Respiratory: Denies cough or shortness of breath [] Cardiovascular: No chest pain or palpitations[] GI: Denies abdominal pain, nausea, vomiting, bloody stools or diarrhea [] : Denies dysuria or hematuria [] Musculoskeletal: Denies back pain or joint pain [] Integument: Denies rash, see history of present illness[] Neurologic: Denies headache, focal weakness or sensory changes [] Endocrine: See history of present illness[] All other systems were reviewed and found to be within normal limits, except as documented in this note. Current Medications Current Medications Current Medications Medications (Trade) Dose Ordered Sig/Boy Start Time Stop Time Status Last Admin Dose Admin Sodium Chloride 1,000 ml @ 1,000 mls/hr Q1H 01/17/19 13:05 01/17/19 14:04 UNV Allergies Allergies Allergies Coded Allergies Type Severity Reaction Last Updated Verified No Known Drug Allergies 10/30/17 No Physical Exam Physical Exam Constitutional: Well developed, well nourished, no acute distress, non-toxic appearance. [] HENT: Normocephalic, atraumatic, bilateral external ears normal, oropharynx moist, no oral exudates, nose normal. [] Eyes: PERRLA, EOMI, conjunctiva normal, no discharge. [] Neck: Normal range of motion, no tenderness, supple, no stridor. [] Cardiovascular:Heart rate is mildly tachycardic in the low 100s with a regular rhythm, no murmur [] Lungs & Thorax: Bilateral breath sounds clear to auscultation [] Abdomen: Bowel sounds normal, soft, no tenderness, no masses, no pulsatile masses. [] Skin: Warm, dry, no erythema, no rash. Right flank has what appears to be an abscess that is healing by secondary intention. There is pink tissue present, 7 mm transverse by 5 mm cephalad caudad. No erythema. No drainage. No induration. [] Back: No tenderness, no CVA tenderness. [] Extremities: No tenderness, no cyanosis, no clubbing, ROM intact, no edema. [] Neurologic: Alert and oriented X 3, normal motor function, normal sensory function, no focal deficits noted. [] Psychologic: Affect normal, judgement normal, mood normal. [] Current Patient Data Vital Signs Vital Signs Date Time Temp Pulse Resp B/P (MAP) Pulse Ox O2 Delivery O2 Flow Rate FiO2 01/17/19 12:58 98.6 98 16 97 Lab Results Laboratory Tests Test 01/17/19 13:05 Glucose (Fingerstick) 198 mg/dL (70-99) H EKG EKG [] Radiology/Procedures Radiology/Procedures [] Course & Med Decision Making Course & Med Decision Making Pertinent Labs and Imaging studies reviewed. (See chart for details) ED course: Patient arrived, was placed in bed, and tolerated exam well. IV access was established, he was given IV fluids. After the return of the laboratory and imaging studies, these were discussed with the patient voiced understanding. All questions were answered. He was discharged in improved condition. Medical decision making: Patient reports that he has type 2 diabetes. There is no evidence of diabetic ketoacidosis. No evidence of an acute infection. No evidence of oral intake intolerance.[] Dragon Disclaimer Dragon Disclaimer This electronic medical record was generated, in whole or in part, using a voice recognition dictation system. Departure Departure: Impression: Primary Impression: Poorly controlled diabetes mellitus Disposition: HOME, SELF-CARE Condition: IMPROVED Referrals: PCP,IRINEO (PCP) Patient Instructions: 1800 Calorie Diet for Diabetes Meal Planning, Diabetes and Exercise-SportsMed, Type 2 Diabetes Mellitus, Adult Additional Instructions: Follow-up with your regular doctor in 2 days. If you do not have a regular doctor, a list of local clinics will be provided. Follow the diabetes meal guide. Avoid fast food and boxed/prepared food. See the attached article "Reversing type 2 diabetes start's with ignoring the guidelines: Education from Dr. Andria Beck's TEDx talk" for additional information on which you can do to help yourself manage your blood sugar better. Return to the ER if you develop a fever of more than 101, unable to tolerate liquids, or any other concerns. CHARLEY GREENE DO Jan 17, 2019 13:40
[2019-01-17 13:43] LABS: BASO % 1 % (0-3); EOS # 0.1 x10^3/uL (0.0-0.7); EOS % 2 % (0-3); HEMATOCRIT 43.1 % (39.0-53.0); HEMOGLOBIN 14.3 g/dL (13.0-17.5); LYMPH # 1.8 x10^3/uL (1.0-4.8); LYMPH % 31 % (24-48); MEAN CORPUSCULAR HEMOGLOBIN 27 pg (25-35); MEAN CORPUSCULAR HGB CONC 33 g/dL (31-37); MEAN CORPUSCULAR VOLUME 81 fL (79-100); MONO # 0.5 x10^3/uL (0.0-1.1); MONO % 9 % (0-9); NEUT # 3.3 x10^3uL (1.8-7.7); NEUT % 58 % (31-73); PLATELET COUNT 231 x10^3/uL (140-400); RED BLOOD COUNT 5.32 x10^6/uL (4.30-5.70); RED CELL DISTRIBUTION WIDTH 12.6 % (11.5-14.5); WHITE BLOOD COUNT 5.7 x10^3/uL (4.0-11.0)
[2019-01-17 13:57] LABS: ALBUMIN 3.7 g/dL (3.4-5.0); ALBUMIN/GLOBULIN RATIO 0.9 (1.0-1.7); CALCIUM 9.2 mg/dL (8.5-10.1); CREATININE 0.8 mg/dL (0.7-1.3); GFR 141.4; POTASSIUM 3.8 mmol/L (3.5-5.1); TOTAL BILIRUBIN 0.5 mg/dL (0.2-1.0)
[2019-01-17 14:27] LABS: BACTERIA,URINE 0 /HPF (0-FEW); BILIRUBIN,URINE NEG (NEG); CLARITY,URINE HAZY; COLOR,URINE AMBER; GLUCOSE,URINE 500 mg/dL (NEG); NITRITE,URINE NEG (NEG); RBC,URINE RARE /HPF (0-2); SQUAMOUS EPITHELIAL CELL,UR OCC /LPF; UROBILINOGEN,URINE 0.2 mg/dL (0.2 mg/dL); WBC,URINE 0 /HPF (0-4)
== END 2019-01-17 14:45 | disposition home or self-care (01) ==
LOC: ER 12:50
DX: E11.65 Type 2 diabetes mellitus with hyperglycemia (principal)
CPT/HCPCS: 36415; 80053; 81001; 82010; 82803; 82947; 85025; 87040; 96360; 99284-25; J7030

== ENCOUNTER 2019-05-26 19:34 | Emergency (ER) | payer BC ==
[~2019-05-26] VITALS: Ht 180.3 cm; Wt 128.4 kg
[2019-05-26 19:45] VITALS: BP 151/105
[2019-05-26] MEDS ORDERED: METF10007 PO (19:54)
[2019-05-26 20:37] LABS: BASO % 0 % (0-3); EOS # 0.1 x10^3/uL (0.0-0.7); EOS % 1 % (0-3); HEMATOCRIT 43.5 % (39.0-53.0); HEMOGLOBIN 14.3 g/dL (13.0-17.5); LYMPH # 1.7 x10^3/uL (1.0-4.8); LYMPH % 35 % (24-48); MEAN CORPUSCULAR HEMOGLOBIN 27 pg (25-35); MEAN CORPUSCULAR HGB CONC 33 g/dL (31-37); MEAN CORPUSCULAR VOLUME 82 fL (79-100); MONO # 0.5 x10^3/uL (0.0-1.1); MONO % 11 % (0-9); NEUT # 2.6 x10^3uL (1.8-7.7); NEUT % 53 % (31-73); PLATELET COUNT 251 x10^3/uL (140-400); RED BLOOD COUNT 5.29 x10^6/uL (4.30-5.70); RED CELL DISTRIBUTION WIDTH 12.9 % (11.5-14.5); WHITE BLOOD COUNT 4.9 x10^3/uL (4.0-11.0)
[2019-05-26 20:45] LABS: CALCIUM 9.2 mg/dL (8.5-10.1); GFR 108.5; POTASSIUM 3.6 mmol/L (3.5-5.1)
[2019-05-26 20:51] LABS: ALBUMIN 3.5 g/dL (3.4-5.0); ALBUMIN/GLOBULIN RATIO 0.9 (1.0-1.7); TOTAL BILIRUBIN 0.6 mg/dL (0.2-1.0); TOTAL PROTEIN 7.6 g/dL (6.4-8.2)
[2019-05-26 21:10] LABS: BACTERIA,URINE 0 /HPF (0-FEW); BILIRUBIN,URINE NEG (NEG); CLARITY,URINE CLEAR; COLOR,URINE STRAW; GLUCOSE,URINE >=1000 mg/dL (NEG); NITRITE,URINE NEG (NEG); RBC,URINE RARE /HPF (0-2); SQUAMOUS EPITHELIAL CELL,UR OCC /LPF; UROBILINOGEN,URINE 0.2 mg/dL (0.2 mg/dL); WBC,URINE OCC /HPF (0-4)
--- NOTE | 2019-05-26 22:55 | PHYS DOC ---
Past History Past Medical History: Anxiety, Depression, Diabetes, Hypertension Past Surgical History: No Surgical History Smoking: Non-smoker Alcohol Use: Occasionally Drug Use: None Adult General Chief Complaint Chief Complaint: MULTIPLE COMPLAINTS HPI HPI Patient is 29-year-old male presenting with just not feeling well for the last month he has had intermittent constipation he says it sometimes leonard when he pees he is feeling body aches and just kind more tired and thirsty than normal he tried to drink a lot of Dr. Benítez and root beer to make himself have a bowel movement. He takes metformin only apparently his insulin was discontinued by primary care a while back but he has not followed up he was frustrated because they kept giving him different providers when he went over to the clinic in [place]. He is also not taking blood pressure medication either Review of Systems Review of Systems Constitutional: Denies fever or chills [] Eyes: Denies change in visual acuity, redness, or eye pain [] HENT: Denies nasal congestion or sore throat [] Integument: Denies rash or skin lesions [] Neurologic: All other systems were reviewed and found to be within normal limits, except as documented in this note. Allergies Allergies Allergies Coded Allergies Type Severity Reaction Last Updated Verified No Known Drug Allergies 05/26/19 No Physical Exam Physical Exam Constitutional: Well developed, well nourished, no acute distress, non-toxic appearance. [] HENT: Normocephalic, atraumatic, bilateral external ears normal, oropharynx moist, no oral exudates, nose normal. [] Eyes: PERRLA, EOMI, conjunctiva normal, no discharge. [] Neck: Normal range of motion, no tenderness, supple, no stridor. [] Cardiovascular:Heart rate regular rhythm, no murmur [] Lungs & Thorax: Bilateral breath sounds clear to auscultation [] Abdomen: Bowel sounds normal, soft, no tenderness, no masses, no pulsatile masses. [] Skin: Warm, dry, no erythema, no rash. [] Back: No tenderness, no CVA tenderness. [] Extremities: No tenderness, no cyanosis, no clubbing, ROM intact, no edema. [] Neurologic: Alert and oriented X 3, normal motor function, normal sensory function, no focal deficits noted. [] Psychologic: Affect normal, judgement normal, mood normal. [] Current Patient Data Vital Signs Vital Signs Date Time Temp Pulse Resp B/P (MAP) Pulse Ox O2 Delivery O2 Flow Rate FiO2 05/26/19 19:45 98.6 111 20 151/105 (120) 97 Room Air Lab Results Laboratory Tests Test 05/26/19 20:08 White Blood Count 4.9 x10^3/uL (4.0-11.0) Red Blood Count 5.29 x10^6/uL (4.30-5.70) Hemoglobin 14.3 g/dL (13.0-17.5) Hematocrit 43.5 % (39.0-53.0) Mean Corpuscular Volume 82 fL (79-100) Mean Corpuscular Hemoglobin 27 pg (25-35) Mean Corpuscular Hemoglobin Concent 33 g/dL (31-37) Red Cell Distribution Width 12.9 % (11.5-14.5) Platelet Count 251 x10^3/uL (140-400) Neutrophils (%) (Auto) 53 % (31-73) Lymphocytes (%) (Auto) 35 % (24-48) Monocytes (%) (Auto) 11 % (0-9) H Eosinophils (%) (Auto) 1 % (0-3) Basophils (%) (Auto) 0 % (0-3) Neutrophils # (Auto) 2.6 x10^3uL (1.8-7.7) Lymphocytes # (Auto) 1.7 x10^3/uL (1.0-4.8) Monocytes # (Auto) 0.5 x10^3/uL (0.0-1.1) Eosinophils # (Auto) 0.1 x10^3/uL (0.0-0.7) Basophils # (Auto) 0.0 x10^3/uL (0.0-0.2) Urine Collection Type Void Urine Color Straw Urine Clarity Clear Urine pH 5.5 Urine Specific [place] 1.010 Urine Protein 100 mg/dl (NEG-TRACE) Urine Glucose (UA) >=1000 mg/dL (NEG) Urine Ketones (Stick) Neg mg/dL (NEG) Urine Blood Trace (NEG) Urine Nitrite Neg (NEG) Urine Bilirubin Neg (NEG) Urine Urobilinogen Dipstick 0.2 mg/dL (0.2 mg/dL) Urine Leukocyte Esterase Neg (NEG) Urine RBC Rare /HPF (0-2) Urine WBC Occ /HPF (0-4) Urine Squamous Epithelial Cells Occ /LPF Urine Bacteria 0 /HPF (0-FEW) Sodium Level 139 mmol/L (136-145) Potassium Level 3.6 mmol/L (3.5-5.1) Chloride Level 101 mmol/L (98-107) Carbon Dioxide Level 26 mmol/L (21-32) Anion Gap 12 (6-14) Blood Urea Nitrogen 8 mg/dL (8-26) Creatinine 1.0 mg/dL (0.7-1.3) Estimated GFR (Cockcroft-Gault) 108.5 BUN/Creatinine Ratio 8 (6-20) Glucose Level 364 mg/dL (70-99) H Calcium Level 9.2 mg/dL (8.5-10.1) Total Bilirubin 0.6 mg/dL (0.2-1.0) Aspartate Amino Transferase (AST) 21 U/L (15-37) Alanine Aminotransferase (ALT) 39 U/L (16-63) Alkaline Phosphatase 72 U/L (46-116) Creatine Kinase 258 U/L (39-308) Total Protein 7.6 g/dL (6.4-8.2) Albumin 3.5 g/dL (3.4-5.0) Albumin/Globulin Ratio 0.9 (1.0-1.7) L EKG EKG [] Radiology/Procedures Radiology/Procedures [] Course & Med Decision Making Course & Med Decision Making Pertinent Labs and Imaging studies reviewed. (See chart for details) [] 29-year-old male with poorly controlled diabetes he tells me his blood sugars are actually usually 500 or higher and now they are actually in the 300 range in the emergency room. No signs of DKA. I spent several minutes talking to the patient about dietary changes fruits vegetables no soda lean proteins follow-up with primary care as soon as possible regarding blood sugar and to avoid long- term complications of diabetes. Is likely that his spectrum of symptoms are related to hyperglycemia. Reassurance was provided otherwise Dragon Disclaimer Dragon Disclaimer This electronic medical record was generated, in whole or in part, using a voice recognition dictation system. Departure Departure: Impression: Primary Impression: Hyperglycemia Disposition: HOME, SELF-CARE Condition: STABLE Patient Instructions: Hyperglycemia, [id number] Additional Instructions: see primary doctor soon for check on blood sugar. within 1-2 weeks. SANTA RIBEIRO MD May 26, 2019 22:55
== END 2019-05-26 21:15 | disposition home or self-care (01) ==
LOC: ER 19:34
DX: E11.65 Type 2 diabetes mellitus with hyperglycemia (principal); F41.9 Anxiety disorder, unspecified; F32.9 Major depressive disorder, single episode, unspecified; I10 Essential (primary) hypertension
CPT/HCPCS: 36415; 80053; 81001; 82550; 85025; 99283

== ENCOUNTER 2020-09-15 08:24 | Emergency (ER) | payer BC ==
[~2020-09-15] VITALS: Ht 180.3 cm; Wt 128.4 kg
[~2020-09-15 08:24] MED LIST changes: +LISI10TA16 PO; -LISI10TA2 PO; +METF10007 PO
[2020-09-15 08:30] VITALS: BP 154/101
--- NOTE | 2020-09-15 09:03 | PHYS DOC ---
Past History Past Medical History: Anxiety, Depression, Diabetes, Hypertension Past Surgical History: No Surgical History Smoking: Non-smoker Alcohol Use: Occasionally Drug Use: None Adult General Chief Complaint Chief Complaint: EYE PROBLEMS HPI HPI Patient is a 30-year-old healthy male presenting for left eye injury. Injury was suffered yesterday evening, patient was trying to move household items and accidentally bumped his left eye into the corner of one of the cardboard boxes when moving. Patient reported initial focal pain but was able to sleep. Repor ts he woke up today with increased tearing, conjunctival injection and feeling of ongoing foreign body sensation. He does not wear contacts. Review of Systems Review of Systems Fourteen body systems of review of systems have been reviewed. See HPI for pertinent positives and negative responses, other butt all other systems are negative, non-pertinent or non-contributory Allergies Allergies Allergies Coded Allergies Type Severity Reaction Last Updated Verified No Known Drug Allergies 05/26/19 No Physical Exam Physical Exam Constitutional: Well developed, well nourished, no acute distress, non-toxic appearance. HENT: Normocephalic, atraumatic, bilateral external ears normal, oropharynx moist, no oral exudates, nose normal. Eye exam: The patient was examined with the slit lamp. Extraocular movements are intact Pupils are equally round and reactive to light Visual acuity: Intact and appropriate Eyelids/under eyelids: normal Conjunctivae and sclera: normal Corneas: There is positive fluorescein uptake at the 3 and 5:00 positions respective to pupil concerning for corneal abrasion, and negative Sae sign Anterior chambers: normal without cell, flare, or hyphema Neck: Normal range of motion, no tenderness, supple, no stridor. Cardiovascular: Heart rate regular per monitor Lungs & Thorax: No respiratory distress or accessory muscle use, bilateral chest rise Abdomen: Abdomen soft, non-tender, bowel sounds present in all quadrants, no guarding or rebound, nonacute abdomen. Skin: Warm, dry, no erythema, no rash. Back: No tenderness, no CVA tenderness. Extremities: No tenderness, no cyanosis, no clubbing, ROM intact, no edema. Neurologic: Alert and oriented X 3, grossly normal motor & sensory function, no focal deficits noted. Psychologic: Affect normal, judgement normal, mood normal. Current Patient Data Vital Signs Vital Signs Date Time Temp Pulse Resp B/P (MAP) Pulse Ox O2 Delivery O2 Flow Rate FiO2 7/1/21 08:30 97.9 87 22 154/101 (118) Room Air EKG EKG [] Radiology/Procedures Radiology/Procedures [] Heart Score C/O Chest Pain: No Risk Factors: Risk Factors: DM, Current or recent (<one month) smoker, HTN, HLP, family history of CAD, obesity. Risk Scores: Risk Factors: DM, Current or recent (<one month) smoker, HTN, HLP, family history of CAD, obesity. Course & Med Decision Making Course & Med Decision Making ABCs unremarkable. I disclosed entirety of ER findings and discussed most likely diagnosis of x2 corneal abrasions to left eye. Patient does not wear contact lenses. Joint decision made to treat with ketorolac drop and eyedrop with no need for Pseudomonas coverage. Patient has good access to primary care physician, I stressed need for close outpatient PCP and Ortho follow-up to review today's ER visit. Strict return precautions were also discussed at length with good understanding by patient. Patient voiced understanding and agreement with the plan. Patient knows to come back for repeat evaluation if concerning signs or symptoms present prior to outpatient follow-up. Hemodynamically stable, ambulatory and well-appearing at time of disposition. Dragon Disclaimer Dragon Disclaimer This electronic medical record was generated, in whole or in part, using a voice recognition dictation system. Departure Departure: Impression: Primary Impression: Left cornea abrasion Disposition: 02 SHORT TERM [facility]OSPITAL Condition: STABLE Referrals: PCP,NO (PCP) Patient Instructions: Eye - Corneal Abrasion Additional Instructions: You were seen for eye pain. You most likely have a corneal abrasion and was caused by trauma to the eye. The pain should improve in the next few days. Use all medications prescribed here as directed. Return to the ED if you develop worsening pain, vision change, fever, or any other new or concerning symptoms. Follow up with an cut off tender glass as needed or if continued symptoms. SHARON LUCERO DO Sep 15, 2020 09:03
[2020-09-15] MEDS ORDERED: CIPROFLOXACIN 0.3% OPHTH SOLUTION 2.5ML BOTTLE. AU ONE (09:15)
[2020-09-15] MEDS: CIPROFLOXACIN 0.3% OPHTH SOLUTION 2.5ML BOTTLE. OU ONE (09:45)
[2020-09-15] MEDS: KETOROLAC TROMETHAMINE 0.5% OPHTH SOLUTION BOTTLE. OU ONE (09:45)
== END 2020-09-15 10:10 | disposition short-term general hospital (02) ==
LOC: ER 08:44
DX: S05.02XA Injury of conjunctiva and corneal abrasion without foreign body, left eye, initial encounter (principal); E11.9 Type 2 diabetes mellitus without complications; I10 Essential (primary) hypertension; X58.XXXA Exposure to other specified factors, initial encounter; Y93.89 Activity, other specified; Y92.89 Other specified places as the place of occurrence of the external cause; Y99.8 Other external cause status
CPT/HCPCS: 99285-25

== ENCOUNTER 2020-11-09 09:31 | Emergency (ER) | payer BC ==
[~2020-11-09] VITALS: Ht 180.3 cm; Wt 128.4 kg
[~2020-11-09 09:31] MED LIST changes: +ERYT1OIN3 LEFTEYE; -ERYT1OIN6 LEFTEYE
[2020-11-09 09:41] VITALS: BP 164/86
[2020-11-09] MEDS ORDERED: HYDR25SU18 RC (10:01)
[2020-11-09] MEDS ORDERED: SENN-121 PO (10:01)
--- NOTE | 2020-11-09 10:01 | PHYS DOC ---
Past History Past Medical History: Anxiety, Depression, Diabetes, Hypertension Past Surgical History: No Surgical History Smoking: Non-smoker Alcohol Use: Occasionally Drug Use: None General Adult EDM: Chief Complaint: RECTAL BLEED HPI: HPI: Patient is a [age] year old [sex] who presents with [] Review of Systems: Review of Systems: Constitutional: Denies fever or chills Eyes: Denies change in visual acuity HENT: Denies nasal congestion or sore throat Respiratory: Denies cough or shortness of breath Cardiovascular: Denies chest pain or edema GI: Denies abdominal pain, nausea, vomiting, bloody stools or diarrhea : Denies dysuria Musculoskeletal: Denies back pain or joint pain Integument: Denies rash Neurologic: Denies headache, focal weakness or sensory changes Endocrine: Denies polyuria or polydipsia Lymphatic: Denies swollen glands Psychiatric: Denies depression or anxiety Allergies: Allergies: Allergies Coded Allergies Type Severity Reaction Last Updated Verified No Known Drug Allergies 05/26/19 No Physical Exam: PE: Constitutional: Well developed, well nourished, no acute distress, non-toxic appearance. [] HENT: Normocephalic, atraumatic, bilateral external ears normal, oropharynx moist, no oral exudates, nose normal. [] Eyes: PERRLA, EOMI, conjunctiva normal, no discharge. [] Neck: Normal range of motion, no tenderness, supple, no stridor. [] Cardiovascular:Heart rate regular rhythm, no murmur [] Lungs & Thorax: Bilateral breath sounds clear to auscultation [] Abdomen: Bowel sounds normal, soft, no tenderness, no masses, no pulsatile masses. [] Skin: Warm, dry, no erythema, no rash. [] Back: No tenderness, no CVA tenderness. [] Extremities: No tenderness, no cyanosis, no clubbing, ROM intact, no edema. [] Neurologic: Alert and oriented X 3, normal motor function, normal sensory function, no focal deficits noted. [] Psychologic: Affect normal, judgement normal, mood normal. [] Current Patient Data: Vital Signs: Vital Signs Date Time Temp Pulse Resp B/P (MAP) Pulse Ox O2 Delivery O2 Flow Rate FiO2 11/09/ 09:41 99 22 164/86 95 EKG: EKG: [] Radiology/Procedures: Radiology/Procedures: [] Heart Score: Risk Factors: Risk Factors: DM, Current or recent (<one month) smoker, HTN, HLP, family history of CAD, obesity. Risk Scores: Score 0 - 3: 2.5% MACE over next 6 weeks - Discharge Home Score 4 - 6: 20.3% MACE over next 6 weeks - Admit for Clinical Observation Score 7 - 10: 72.7% MACE over next 6 weeks - Early Invasive Strategies Course & Med Decision Making: Course & Med Decision Making Pertinent Labs and Imaging studies reviewed. (See chart for details) [] Dragon Disclaimer: Dragon Disclaimer: This electronic medical record was generated, in whole or in part, using a voice recognition dictation system. Departure Departure: Impression: Primary Impression: Rectal bleeding Additional Impression: Hypertension Qualified Codes: I10 - Essential (primary) hypertension Disposition: HOME / SELF CARE / HOMELESS Condition: STABLE Referrals: PCP,NO (PCP) Patient Instructions: Hypertension, [id number], Rectal Bleeding, [id number] Additional Instructions: Increase fluid hydration. Rectal rest for next 1 week. Follow with health department for testing that was performed today for STDs. Scripts Hydrocortisone Acetate (ANUSOL-HC) 25 Mg Supp.rect 1 SUPP RC BID for Hemorrhoids for 7 Days, #14 SUPP 0 Refills Prov: TOMAS MOTTA DO 11/09/20 Sennosides/Docusate Sodium (Colace 2-in-1 Tablet) 1 Each Tablet 1 TAB PO BID for Stool softning, #30 TAB 0 Refills Prov: TOMAS MOTTA DO 11/09/20 TOMAS MOTTA DO Nov 09, 2020 10:01
== END 2020-11-09 10:08 | disposition home or self-care (01) ==
LOC: ER 09:31
DX: K62.5 Hemorrhage of anus and rectum (principal); I10 Essential (primary) hypertension; F41.9 Anxiety disorder, unspecified; F32.9 Major depressive disorder, single episode, unspecified; E11.9 Type 2 diabetes mellitus without complications
CPT/HCPCS: 99283

== ENCOUNTER 2021-01-10 18:05 | Emergency (ER) | payer BC, OTHER ==
[~2021-01-10] VITALS: Ht 180.3 cm; Wt 120.0 kg
[~2021-01-10 18:05] MED LIST changes: +HYDR25SU18 RC; +SENN-121 PO
[2021-01-10 18:23] VITALS: BP 167/100
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
[2021-01-10] MEDS ORDERED: KETOROLAC 60 MG/2 ML VIAL. IM ONE (18:30)
[2021-01-10] MEDS ORDERED: ORPHENADRINE CITRATE 60 MG/2 ML VIAL. IM ONE (18:30)
[2021-01-10] MEDS ORDERED: CYCL5TAB PO (19:03)
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
== END 2021-01-10 19:30 | disposition home or self-care (01) ==
LOC: ER 18:05
DX: M54.59 Other low back pain (principal); M25.552 Pain in left hip; E11.9 Type 2 diabetes mellitus without complications; V43.92XA Unspecified car occupant injured in collision with other type car in traffic accident, initial encounter; Y93.89 Activity, other specified; Y92.89 Other specified places as the place of occurrence of the external cause; Y99.8 Other external cause status
CPT/HCPCS: 72100; 73502; 96372; 99284; J1885; J2360